=== PATIENT | female | born 1985 | race Caucasian/White ===

== ENCOUNTER 2017-12-22 09:18 | Inpatient (IN) | payer OTHER ==
[~2017-12-22] VITALS: Ht 144.8 cm; Wt 59.9 kg
--- NOTE | ~2017-12-22 | HC ---
[facility] [place] [address] CONSULTATION Name: STEPHANIECARMELO A Room #: 357-P [facility] IN ..#: [id number] Admission: 12/22/17 Attend Phys: Mikhail Vasquez MD Discharge: Date of : 85 Report #: [id number] THIS REPORT FOR: //name// CC: Roman Vasquez DATE OF SERVICE: 12/23/2017 REASON FOR CONSULTATION: Fever in the setting of alcoholic pancreatitis, hepatitis and cirrhosis. HISTORY OF PRESENT ILLNESS: The patient was a 32-year-old brought into the Emergency Room with abdominal pain, nausea and vomiting on 12/22/2017. She has alcohol abuse issues and cirrhosis of the liver. Hospitalized at [facility] last month with similar symptoms. She spent three weeks in the hospital. Following discharge late last week, she started drinking again and then came in with increased abdominal pain, nausea and vomiting. She has had previous pancreatitis with pseudocyst. Also, was found to be hepatitis C positive. Today, had a temperature of 101 degrees. No cough or sputum production. Continues to have abdominal pain. She has been able to keep some liquids down. No diarrhea. No dysuria or frequency. No rash. She remains icteric. Blood pressure dropped down into the 90s systolic. She has been given fluids and albumin. Denies any presyncopal symptoms. She notes good urine output. ALLERGIES: ASPIRIN, CODEINE, FENTANYL, NAPROSYN, PENICILLIN, TRAMADOL, KETOROLAC, PROPOXYPHENE. MEDICATIONS: As noted on her MAR, which were reviewed. PAST MEDICAL HISTORY: Pancreatitis, fatty liver, cirrhosis, alcohol abuse, . FAMILY HISTORY: Colon cancer. SOCIAL HISTORY: She smokes and is a heavy drinker. REVIEW OF SYSTEMS: Ten-point review negative other than what is described above. PHYSICAL EXAMINATION: VITAL SIGNS: Currently afebrile, heart rate 100, respiratory rate 18, blood pressure 93/58. She was up ambulatory. GENERAL: She was alert and pleasant, in no acute distress, although complaining of abdominal pain. HEENT: Sclerae were icterus. Pupils equal, round and reactive to light. [facility] [address] [place] [address] CONSULTATION Name: CARMELO BROWN Room #: 357-P [facility] IN ..#: [id number] Admission: 12/22/17 Attend Phys: Mikhail Vasquez MD Discharge: Date of : 85 Report #: [id number] unremarkable. NECK: Supple. LUNGS: Decreased breath sounds in the bases, mostly on the right. HEART: Regular, without murmur. ABDOMEN: Distended, tender mostly in the right upper quadrant. She had fullness throughout the right upper quadrant. Liver edge was palpable. She had no guarding or rebound. EXTREMITIES: Unremarkable with no edema. NEUROLOGIC: Nonfocal. LABORATORY STUDIES: Creatinine 0.6, bilirubin 6.6, alkaline phosphatase 141, AST 162, ALT 31, albumin 1.7, ammonia 26, lipase 86, lactate 1.4. Alcohol level was 43 on admission, hemoglobin 8.8, white count 12.6, platelet count 442,000. Urinalysis with bilirubin. Blood cultures are pending. Hepatitis C positive. Chest x-ray, increased right hemidiaphragm. CT scan of the abdomen and pelvis shows splenic infarct, mild splenomegaly and fatty liver. No ascites, inflammation of the pancreas tail with a small pseudocyst, portal hypertension. IMPRESSION: Fever in the setting of alcoholic hepatitis and cirrhosis. Continues to have abdominal pain. She has portal hypertension with splenic infarct. Hepatitis C is positive. PLAN: Recommend continuing antibiotic coverage and await blood culture results. Fever, likely related to her hepatitis and mild pancreatitis. We will see how she does over the next 24-48 hours. I agree with psychiatric evaluation to assist with alcohol cessation. <ELECTRONICALLY SIGNED> By: Laith Michel MD 12/24/17 [id number] Laith Michel MD /nt
[~2017-12-22 09:18] MED LIST: ACETAMINOPHEN-1 EAC1 PO; ALPRAZOLAM2 MG PO; AMBIEN 10 MG TA10 MG PO; AMOXICILLI250 MG/51 PO; AMOXICILLI400 MG/5 M PO; AMOXICILLIN875 MG PO; APAP500 PO; AUGMENTIN 875875 M1 PO; AZITHROMYC200 MG/51 PO; BACTRIM DS TAB1 EACH PO; CARISOPRODOL 3350 MG PO; CIPROFLOXACIN500 M1 PO; FLAGYL500 MG PO; FLEXERIL PO; FLONASE 0.05%50 MCG NASAL; FLONASE 0.05%50 MCG NS; HALOPERIDOL 5 MG5 MG PO; HYDROCODON-ACE1 EAC7 PO; HYDROCODONE-AC120 ML PO; IBUPROFEN 400400 M2 PO; LORTAB 5 MG/5001 TA1 PO; LORTAB 5 MG/5001 TAB PO; MACROBID 100 M100 M1 PO; MEDROL DOSPAK21 TA1 PO; MEDROLDOSEPACK PO; NORCO 5-325 TA1 EACH PO; NUCYNTA50 MG PO; OXYCODONE HCL 55 MG PO; PENICILLIN VK500 MG PO; PERCOCET 5-3251 EACH PO; PHENERGAN 25 MG25 M1 PO; PYRIDIUM200 MG PO; RELAFEN500 MG PO; ROXICODONE5 M1 PO; TESSALON PERLE100 MG PO; XANAX XR2 MG PO; ZPAK; ZPAK PO
[2017-12-22 09:19] VITALS: BP 125/86
[2017-12-22] MEDS ORDERED: OXYCODONE HCL 55 MG PO (09:28)
[2017-12-22 10:19] LABS: ABSOLUTE NEUTROPHILS 11.2 thou/uL (1.4-8.2); BASOPHILS 0.6 % (0.0-2.0); EOSINOPHILS 0.6 % (0.0-3.0); HEMATOCRIT 34.8 % (37.0-47.0); HEMOGLOBIN 11.8 gm/dL (12.0-15.0); LYMPHOCYTES 16.3 % (24.0-44.0); MCH 33.7 pg (26.0-34.0); MCV 99.3 fL (80.0-100.0); MONOCYTES 6.1 % (1.0-8.0); PLATELET COUNT 698 thou/uL (150-400); POLYS 76.4 % (36.0-66.0); RDW 18.8 % (10.5-14.5); WBC 14.7 thou/uL (4.0-11.0)
[2017-12-22 10:25] LABS: URINE BILIRUBIN 1+ (Negative); URINE BLOOD NEGATIVE (Negative); URINE CLARITY CLEAR; URINE COLOR YELLOW; URINE GLUCOSE-RANDOM* NEGATIVE (Negative); URINE KETONES NEGATIVE (Negative); URINE LEUKOCYTES-REFLEX NEGATIVE (Negative); URINE NITRITE-REFLEX NEGATIVE (Negative); URINE PROTEIN (DIPSTICK) NEGATIVE (Negative)
[2017-12-22 10:27] LABS: ICTOTEST (BILI CONFIRMATORY) Positive (Negative)
[2017-12-22 10:29] LABS: CALCIUM 9.1 mg/dL (8.5-10.1); CREATININE 0.5 mg/dL (0.6-1.0)
[2017-12-22 10:33] LABS: ALBUMIN 2.1 g/dL (3.4-5.0); TOTAL PROTEIN 7.9 g/dL (6.4-8.2)
[2017-12-22 10:33] LABS: AMP/METHAMP Negative (Negative); BARBITURATES Negative (Negative); BENZODIAZEPINES Negative (Negative); COCAINE Negative (Negative); METHADONE Negative (Negative); OPIATES Negative (Negative); PCP Negative (Negative)
[2017-12-22 10:34] LABS: TOTAL BILIRUBIN 7.5 mg/dL (<0.1-1.0)
[2017-12-22 10:39] LABS: ANISOCYTOSIS 1+; PLATELET ESTIMATE INCREASED
[2017-12-22 11:56] VITALS: BP 124/82
[2017-12-22 12:12] LABS: INR 1.3; PROTIME 13.6 Seconds (9.3-11.4)
[2017-12-22 12:21] VITALS: BP 124/82
[2017-12-22 12:34] VITALS: BP 121/82
[2017-12-22 15:20] VITALS: BP 102/67
[2017-12-22 17:00] LABS: % SATURATION 33 % (20-39); IRON 75 ug/dL (50-170); TIBC 225 ug/dL (250-450)
[2017-12-22 19:05] VITALS: BP 100/71
[2017-12-23] VITALS (9 sets, daily range): BP systolic 87–113; BP diastolic 53–81
[2017-12-23 04:07] LABS: IgG 1410 mg/dL (700-1600)
[2017-12-23 04:44] LABS: ALBUMIN 1.7 g/dL (3.4-5.0); CALCIUM 8.7 mg/dL (8.5-10.1); CREATININE 0.4 mg/dL (0.6-1.0); DIRECT BILIRUBIN 5.2 mg/dL (<0.1-0.3); TOTAL BILIRUBIN 6.6 mg/dL (<0.1-1.0)
[2017-12-23 04:45] LABS: MCH 33.8 pg (26.0-34.0); MCHC 33.7 g/dL (28.0-37.0); MCV 100.3 fL (80.0-100.0); RBC 2.79 mil/uL (4.20-5.00); RDW 19.5 % (10.5-14.5); WBC 9.4 thou/uL (4.0-11.0)
[2017-12-23 04:47] LABS: POTASSIUM 4.1 mmol/L (3.5-5.1)
[2017-12-23 04:50] LABS: HEMOGLOBIN 9.4 gm/dL (12.0-15.0)
[2017-12-23 04:54] LABS: CHOLESTEROL 175 mg/dL (<200); HDL CHOLESTEROL 9 mg/dL (>40); LDL CHOLESTEROL 97 mg/dL (<100); TC:HDL 19.4 Ratio (Not establshd); TRIGLYCERIDE 347 mg/dL (<150); VLDL 69 mg/dL (<40)
[2017-12-23 04:56] LABS: SERUM ASSESSMENT Clear
[2017-12-23 05:03] LABS: TOTAL PROTEIN 6.5 g/dL (6.4-8.2)
[2017-12-23 10:09] LABS: HAV IgM AB (ANTI-HAV IgM) Negative (Negative); HEPATITIS B SURFACE AG Negative (Negative); HEPATITIS C VIRUS AB 7.8 (0.0-0.9)
[2017-12-23 14:10] LABS: CERULOPLASMIN 32.9 mg/dL (19.0-39.0)
[2017-12-23 17:30] LABS: URINE BILIRUBIN NEGATIVE (Negative); URINE BLOOD NEGATIVE (Negative); URINE CLARITY CLEAR; URINE COLOR YELLOW; URINE GLUCOSE-RANDOM* NEGATIVE (Negative); URINE KETONES NEGATIVE (Negative); URINE LEUKOCYTES-REFLEX NEGATIVE (Negative); URINE NITRITE-REFLEX NEGATIVE (Negative); URINE PROTEIN (DIPSTICK) NEGATIVE (Negative); URINE SPECIFIC GRAVITY <= 1.005 (1.005-1.035); URINE UROBILINOGEN 0.2 E.U./dl (0.2-1.0)
[2017-12-23 19:14] LABS: HEMATOCRIT 25.8 % (37.0-47.0); HEMOGLOBIN 8.8 gm/dL (12.0-15.0); MCH 34.1 pg (26.0-34.0); MCHC 34.1 g/dL (28.0-37.0); RBC 2.58 mil/uL (4.20-5.00); RDW 18.9 % (10.5-14.5); WBC 12.6 thou/uL (4.0-11.0)
[2017-12-23 19:26] LABS: CALCIUM 8.5 mg/dL (8.5-10.1); CREATININE 0.6 mg/dL (0.6-1.0); POTASSIUM 4.2 mmol/L (3.5-5.1)
[2017-12-23 23:32] LABS: HEMATOCRIT 26.1 % (37.0-47.0); HEMOGLOBIN 8.7 gm/dL (12.0-15.0)
[2017-12-24 03:16] VITALS: BP 103/69
[2017-12-24 05:46] LABS: ABSOLUTE NEUTROPHILS 5.4 thou/uL (1.4-8.2); BASOPHILS 0.6 % (0.0-2.0); EOSINOPHILS 3.5 % (0.0-3.0); HEMATOCRIT 23.8 % (37.0-47.0); HEMOGLOBIN 8.1 gm/dL (12.0-15.0); LYMPHOCYTES 22.4 % (24.0-44.0); MCH 34.1 pg (26.0-34.0); MCHC 33.9 g/dL (28.0-37.0); MCV 100.6 fL (80.0-100.0); MONOCYTES 7.9 % (1.0-8.0); PLATELET COUNT 399 thou/uL (150-400); POLYS 65.6 % (36.0-66.0); RBC 2.37 mil/uL (4.20-5.00); RDW 18.7 % (10.5-14.5); WBC 8.2 thou/uL (4.0-11.0)
[2017-12-24 05:56] LABS: INR 1.3; PROTIME 12.9 Seconds (9.3-11.4)
[2017-12-24 06:08] LABS: ALBUMIN 1.8 g/dL (3.4-5.0); CALCIUM 8.2 mg/dL (8.5-10.1); CREATININE 0.5 mg/dL (0.6-1.0); PHOSPHORUS 3.6 mg/dL (2.5-4.9); POTASSIUM 3.9 mmol/L (3.5-5.1); TOTAL BILIRUBIN 4.7 mg/dL (<0.1-1.0)
[2017-12-24 09:29] VITALS: BP 107/71
[2017-12-24 11:41] VITALS: BP 116/77
[2017-12-24 16:06] VITALS: BP 126/88
[2017-12-24 20:04] VITALS: BP 118/68
[2017-12-24 23:10] LABS: HEMATOCRIT 24.9 % (37.0-47.0); HEMOGLOBIN 8.4 gm/dL (12.0-15.0)
[2017-12-25 03:52] VITALS: BP 107/72
[2017-12-25 05:37] LABS: ABSOLUTE NEUTROPHILS 6.3 thou/uL (1.4-8.2); BASOPHILS 0.6 % (0.0-2.0); EOSINOPHILS 3.1 % (0.0-3.0); HEMATOCRIT 24.6 % (37.0-47.0); HEMOGLOBIN 8.3 gm/dL (12.0-15.0); LYMPHOCYTES 21.2 % (24.0-44.0); MCH 34.2 pg (26.0-34.0); MCHC 33.9 g/dL (28.0-37.0); MCV 100.9 fL (80.0-100.0); MONOCYTES 9.5 % (1.0-8.0); PLATELET COUNT 403 thou/uL (150-400); POLYS 65.6 % (36.0-66.0); RBC 2.44 mil/uL (4.20-5.00); RDW 19.4 % (10.5-14.5); WBC 9.6 thou/uL (4.0-11.0)
[2017-12-25 05:49] LABS: ALBUMIN 1.9 g/dL (3.4-5.0); CALCIUM 8.3 mg/dL (8.5-10.1); CREATININE 0.5 mg/dL (0.6-1.0); DIRECT BILIRUBIN 3.9 mg/dL (<0.1-0.3); POTASSIUM 4.1 mmol/L (3.5-5.1); TOTAL BILIRUBIN 4.7 mg/dL (<0.1-1.0); TOTAL PROTEIN 5.9 g/dL (6.4-8.2)
[2017-12-25 06:17] LABS: ANISOCYTOSIS 2+; POLYCHROMASIA 1+
[2017-12-25 08:00] VITALS: BP 94/61
[2017-12-25 10:10] LABS: ANA INTERPRETATION Negative (Negative)
[2017-12-25 15:47] VITALS: BP 113/75
[2017-12-25 19:16] VITALS: BP 111/71
[2017-12-25 23:27] LABS: HEMATOCRIT 26.3 % (37.0-47.0); HEMOGLOBIN 8.9 gm/dL (12.0-15.0)
[2017-12-26 04:33] VITALS: BP 120/88
[2017-12-26 07:05] VITALS: BP 120/77
[2017-12-26 07:30] LABS: HEMATOCRIT 25.9 % (37.0-47.0); HEMOGLOBIN 8.7 gm/dL (12.0-15.0); MCH 33.8 pg (26.0-34.0); MCHC 33.4 g/dL (28.0-37.0); RBC 2.56 mil/uL (4.20-5.00); RDW 19.9 % (10.5-14.5); WBC 9.4 thou/uL (4.0-11.0)
[2017-12-26 07:44] LABS: ALBUMIN 1.8 g/dL (3.4-5.0); CALCIUM 8.4 mg/dL (8.5-10.1); CREATININE 0.5 mg/dL (0.6-1.0); POTASSIUM 3.9 mmol/L (3.5-5.1); TOTAL BILIRUBIN 3.9 mg/dL (<0.1-1.0)
[2017-12-26 08:00] LABS: TOTAL PROTEIN 6.1 g/dL (6.4-8.2)
[2017-12-26 08:05] LABS: INR 1.3; PROTIME 12.9 Seconds (9.3-11.4)
[2017-12-26 15:00] VITALS: BP 133/80
[2017-12-26 19:04] VITALS: BP 108/85
[2017-12-26 23:10] LABS: HEMATOCRIT 29.3 % (37.0-47.0); HEMOGLOBIN 9.7 gm/dL (12.0-15.0)
[2017-12-27 03:32] VITALS: BP 97/68
[2017-12-27 06:11] LABS: ABSOLUTE NEUTROPHILS 7.1 thou/uL (1.4-8.2); BASOPHILS 0.3 % (0.0-2.0); EOSINOPHILS 3.3 % (0.0-3.0); HEMATOCRIT 27.2 % (37.0-47.0); HEMOGLOBIN 9.4 gm/dL (12.0-15.0); LYMPHOCYTES 16.3 % (24.0-44.0); MCH 34.6 pg (26.0-34.0); MCHC 34.4 g/dL (28.0-37.0); MCV 100.5 fL (80.0-100.0); MONOCYTES 6.8 % (1.0-8.0); PLATELET COUNT 400 thou/uL (150-400); POLYS 73.3 % (36.0-66.0); RBC 2.71 mil/uL (4.20-5.00); RDW 19.9 % (10.5-14.5); WBC 9.7 thou/uL (4.0-11.0)
[2017-12-27 06:22] LABS: CALCIUM 8.7 mg/dL (8.5-10.1); CREATININE 0.5 mg/dL (0.6-1.0); TOTAL BILIRUBIN 4.2 mg/dL (<0.1-1.0); TOTAL PROTEIN 6.4 g/dL (6.4-8.2)
[2017-12-27 07:42] VITALS: BP 96/66
[2017-12-27 11:21] VITALS: BP 107/84
[2017-12-27 19:11] VITALS: BP 116/74
[2017-12-27 23:25] LABS: HEMATOCRIT 32.3 % (37.0-47.0); HEMOGLOBIN 10.7 gm/dL (12.0-15.0)
[2017-12-28 04:52] VITALS: BP 125/89
[2017-12-28 06:59] LABS: ABSOLUTE NEUTROPHILS 9.3 thou/uL (1.4-8.2); BASOPHILS 0.5 % (0.0-2.0); EOSINOPHILS 1.3 % (0.0-3.0); HEMATOCRIT 30.7 % (37.0-47.0); HEMOGLOBIN 10.3 gm/dL (12.0-15.0); LYMPHOCYTES 12.5 % (24.0-44.0); MCH 33.2 pg (26.0-34.0); MCHC 33.5 g/dL (28.0-37.0); MCV 99.2 fL (80.0-100.0); MONOCYTES 7.4 % (1.0-8.0); PLATELET COUNT 461 thou/uL (150-400); POLYS 78.3 % (36.0-66.0); RDW 20.1 % (10.5-14.5); WBC 11.9 thou/uL (4.0-11.0)
[2017-12-28 07:04] LABS: CALCIUM 8.9 mg/dL (8.5-10.1); CREATININE 0.5 mg/dL (0.6-1.0); POTASSIUM 3.8 mmol/L (3.5-5.1)
[2017-12-28 07:24] VITALS: BP 117/80
[2017-12-28 08:46] LABS: ANISOCYTOSIS 2+; HYPOCHROMASIA 1+; SCHISTOCYTES OCCASIONAL
[2017-12-28 12:14] VITALS: BP 135/94
[2017-12-28 16:02] VITALS: BP 107/80
[2017-12-28 18:58] VITALS: BP 103/72
[2017-12-29 03:31] VITALS: BP 96/65
[2017-12-29 05:19] LABS: ABSOLUTE NEUTROPHILS 7.8 thou/uL (1.4-8.2); BASOPHILS 0.9 % (0.0-2.0); EOSINOPHILS 2.5 % (0.0-3.0); HEMATOCRIT 30.2 % (37.0-47.0); LYMPHOCYTES 14.6 % (24.0-44.0); MCHC 33.1 g/dL (28.0-37.0); MCV 99.8 fL (80.0-100.0); MONOCYTES 8.9 % (1.0-8.0); PLATELET COUNT 454 thou/uL (150-400); POLYS 73.1 % (36.0-66.0); RBC 3.02 mil/uL (4.20-5.00); RDW 19.9 % (10.5-14.5); WBC 10.6 thou/uL (4.0-11.0)
[2017-12-29 05:34] LABS: ALBUMIN 2.1 g/dL (3.4-5.0); CALCIUM 8.7 mg/dL (8.5-10.1); CREATININE 0.5 mg/dL (0.6-1.0); POTASSIUM 3.4 mmol/L (3.5-5.1); TOTAL BILIRUBIN 3.7 mg/dL (<0.1-1.0); TOTAL PROTEIN 6.7 g/dL (6.4-8.2)
[2017-12-29 07:13] VITALS: BP 96/71
[2017-12-29 11:24] VITALS: BP 110/83
[2017-12-29] MEDS ORDERED: VISTARIL 25 MG25 M1 PO (13:24)
[2017-12-29] MEDS ORDERED: FLAGYL500 MG PO (13:24)
[2017-12-29] MEDS ORDERED: PANTOPRAZOLE SO40 M1 PO (13:24)
[2017-12-29] MEDS ORDERED: PANCREAZE DR 11 EAC2 PO (13:24)
[2017-12-29] MEDS ORDERED: PROCHLORPERAZINE5 M2 PO (13:24)
[2017-12-29] MEDS ORDERED: VITAMIN B-1100 M2 PO (13:24)
[2017-12-29] MEDS ORDERED: CIPRO500 MG PO (13:24)
[2017-12-29] MEDS ORDERED: PRENATAL COMPL1 EACH PO (13:24)
[2017-12-29 17:49] VITALS: BP 110/83
== END 2017-12-29 18:25 | disposition home or self-care (01) | DRG 871 ==
LOC: ER 09:18 → 3W 11:36 → EROBS 11:36 → 3W 12:17
PROVIDERS: Emergency Medicine; Hospitalist; Nurse Practitioner; Nurse Practitioner Family; Specialist
DX: A41.9 Sepsis, unspecified organism (principal); K85.90 Acute pancreatitis without necrosis or infection, unspecified; K76.6 Portal hypertension; E46 Unspecified protein-calorie malnutrition; K86.3 Pseudocyst of pancreas; K86.1 Other chronic pancreatitis; I86.4 Gastric varices; E86.0 Dehydration; K72.90 Hepatic failure, unspecified without coma; K59.00 Constipation, unspecified; I86.8 Varicose veins of other specified sites; K70.31 Alcoholic cirrhosis of liver with ascites; D64.9 Anemia, unspecified; K75.81 Nonalcoholic steatohepatitis (NASH); G47.00 Insomnia, unspecified; R65.20 Severe sepsis without septic shock; K70.10 Alcoholic hepatitis without ascites; D73.5 Infarction of spleen; E80.6 Other disorders of bilirubin metabolism; E87.6 Hypokalemia; D47.3 Essential (hemorrhagic) thrombocythemia; Z79.899 Other long term (current) drug therapy; Z80.0 Family history of malignant neoplasm of digestive organs; Z88.0 Allergy status to penicillin; Z98.891 History of uterine scar from previous surgery; Z88.5 Allergy status to narcotic agent; Z88.8 Allergy status to other drugs, medicaments and biological substances; Z88.6 Allergy status to analgesic agent; Z87.891 Personal history of nicotine dependence; Z76.5 Malingerer [conscious simulation]; Z68.28 Body mass index [BMI] 28.0-28.9, adult
CPT/HCPCS: 10879

== ENCOUNTER 2018-03-26 10:18 | Inpatient (IN) | payer OTHER ==
[~2018-03-26] VITALS: Ht 144.8 cm; Wt 59.0 kg
[2018-03-26 10:18] VITALS: BP 127/80
[~2018-03-26 10:18] MED LIST changes: +CIPRO500 MG PO; +PANCREAZE DR 11 EAC2 PO; +PANTOPRAZOLE SO40 M1 PO; +PRENATAL COMPL1 EACH PO; +PROCHLORPERAZINE5 M2 PO; +VISTARIL 25 MG25 M1 PO; +VITAMIN B-1100 M2 PO
[2018-03-26 10:42] LABS: HEMATOCRIT 31.7 % (37.0-47.0); HEMOGLOBIN 11.1 gm/dL (12.0-15.0); MCV 91.4 fL (80.0-100.0); PLATELET COUNT 325 thou/uL (150-400); RBC 3.46 mil/uL (4.20-5.00); RDW 19.6 % (10.5-14.5); WBC 6.2 thou/uL (4.0-11.0)
[2018-03-26 10:48] LABS: CALCIUM 8.3 mg/dL (8.5-10.1); CREATININE 0.4 mg/dL (0.6-1.0)
[2018-03-26 10:54] LABS: ALBUMIN 2.9 g/dL (3.4-5.0); TOTAL BILIRUBIN 1.6 mg/dL (<0.1-1.0); TOTAL PROTEIN 7.2 g/dL (6.4-8.2)
[2018-03-26 11:17] LABS: ABSOLUTE NEUTROPHILS 4.3 thou/uL (1.4-8.2); ANISOCYTOSIS 2+; ATYPICAL LYMPHS 2 %
[2018-03-26 12:00] LABS: URINE BILIRUBIN 1+ (Negative); URINE CLARITY CLOUDY; URINE COLOR YELLOW; URINE GLUCOSE-RANDOM* NEGATIVE (Negative); URINE KETONES TRACE (Negative); URINE PROTEIN (DIPSTICK) NEGATIVE (Negative); URINE SPECIFIC GRAVITY >= 1.030 (1.005-1.035)
[2018-03-26 12:01] LABS: ICTOTEST (BILI CONFIRMATORY) Positive (Negative); URINE BLOOD NEGATIVE (Negative); URINE LEUKOCYTES-REFLEX NEGATIVE (Negative); URINE NITRITE-REFLEX NEGATIVE (Negative)
[2018-03-26 12:03] LABS: AMP/METHAMP Negative (Negative); BARBITURATES Negative (Negative); BENZODIAZEPINES Negative (Negative); COCAINE Negative (Negative); METHADONE Negative (Negative); OPIATES Negative (Negative); PCP Negative (Negative)
[2018-03-26 16:30] LABS: FOLIC ACID 6.9 ng/mL (8.6-58.9)
[2018-03-26 16:41] VITALS: BP 111/64
[2018-03-26 17:14] VITALS: BP 105/63
--- NOTE | 2018-03-26 17:23 | NUR ---
CALLED FLOOR TO GIVE UPDATE ABOUT PT'S IV STATUS.
[2018-03-26 17:41] VITALS: BP 112/73
[2018-03-26 19:06] VITALS: BP 105/69
[2018-03-27] VITALS: BP 94/64
--- NOTE | 2018-03-27 03:13 | NUR ---
patient is alert and oriented. patient is anxious at times. patient is sba. patients pain is treated with pain medication. patient is on room air. patients ciwa was 6 and 3. patients potassium and mag were replace. patients lbm was the 3rd. patient is on the electrolyte proticol. patient is resting comfortabley in bed. wcm. patient is progressing to goals.
[2018-03-27 03:50] VITALS: BP 103/69
[2018-03-27 05:50] LABS: ALBUMIN 2.2 g/dL (3.4-5.0); CALCIUM 7.6 mg/dL (8.5-10.1); CREATININE 0.5 mg/dL (0.6-1.0); MAGNESIUM 1.3 mg/dL (1.8-2.4); TOTAL PROTEIN 5.3 g/dL (6.4-8.2)
[2018-03-27 07:48] VITALS: BP 93/61
[2018-03-27] MEDS ORDERED: HYDROCODON-ACE1 EAC7 PO (10:00)
[2018-03-27] MEDS ORDERED: VITAMIN B-1100 M2 PO (10:00)
[2018-03-27] MEDS ORDERED: CHLORDIAZEPOXID10 MG PO (10:01)
[2018-03-27 10:15] VITALS: BP 93/61
== END 2018-03-27 13:00 | disposition home or self-care (01) | DRG 433 ==
LOC: ER 10:18 → EROBS 14:32 → 3W 17:16 → ENTRNSPT 03-27 12:51 → EDTRNSPTSTS 03-27 12:58 → 3W 03-27 13:00
PROVIDERS: Emergency Medicine; ADMIT Hospitalist
DX: K70.30 Alcoholic cirrhosis of liver without ascites (principal); F10.239 Alcohol dependence with withdrawal, unspecified; E46 Unspecified protein-calorie malnutrition; K70.10 Alcoholic hepatitis without ascites; E87.6 Hypokalemia; E83.42 Hypomagnesemia; K76.0 Fatty (change of) liver, not elsewhere classified; Z79.899 Other long term (current) drug therapy; Z88.6 Allergy status to analgesic agent; Z88.0 Allergy status to penicillin; Z88.8 Allergy status to other drugs, medicaments and biological substances; Z87.891 Personal history of nicotine dependence; Z80.0 Family history of malignant neoplasm of digestive organs; Z68.28 Body mass index [BMI] 28.0-28.9, adult
CPT/HCPCS: 10879

== ENCOUNTER 2018-06-02 01:46 | Inpatient (IN) | payer OTHER ==
[2018-06-02] VITALS (8 sets, daily range): BP systolic 98–151; BP diastolic 71–95
[~2018-06-02] VITALS: Ht 144.8 cm; Wt 54.0 kg
[~2018-06-02 01:46] MED LIST changes: +CHLORDIAZEPOXID10 MG PO
[2018-06-02] MEDS ORDERED: ONDANSETRON HCL4 M2 PO (01:54)
[2018-06-02 02:23] LABS: ABSOLUTE NEUTROPHILS 8.3 thou/uL (1.4-8.2); BASOPHILS 0.9 % (0.0-2.0); EOSINOPHILS 0.7 % (0.0-3.0); HEMATOCRIT 29.7 % (37.0-47.0); HEMOGLOBIN 9.8 gm/dL (12.0-15.0); LYMPHOCYTES 12.9 % (24.0-44.0); MCH 29.2 pg (26.0-34.0); MCHC 33.2 g/dL (28.0-37.0); MCV 88.1 fL (80.0-100.0); PLATELET COUNT 423 thou/uL (150-400); POLYS 75.5 % (36.0-66.0); RBC 3.37 mil/uL (4.20-5.00); RDW 17.2 % (10.5-14.5)
[2018-06-02 02:38] LABS: ALBUMIN 4.9 g/dL (3.4-5.0); CALCIUM 9.1 mg/dL (8.5-10.1); CREATININE 0.7 mg/dL (0.6-1.0); TOTAL BILIRUBIN 1.1 mg/dL (<0.1-1.0)
[2018-06-02 02:47] LABS: POTASSIUM 2.8 mmol/L (3.5-5.1)
[2018-06-02 03:13] LABS: URINE BILIRUBIN NEGATIVE (Negative); URINE BLOOD NEGATIVE (Negative); URINE CLARITY CLEAR; URINE COLOR YELLOW; URINE GLUCOSE-RANDOM* NEGATIVE (Negative); URINE KETONES NEGATIVE (Negative); URINE LEUKOCYTES-REFLEX NEGATIVE (Negative); URINE NITRITE-REFLEX NEGATIVE (Negative); URINE PROTEIN (DIPSTICK) 1+ (Negative); URINE SPECIFIC GRAVITY >= 1.030 (1.005-1.035); URINE UROBILINOGEN 0.2 E.U./dl (0.2-1.0)
[2018-06-02 03:57] LABS: BACTERIA-REFLEX None Seen /HPF (None Seen); CASTS None Seen /LPF (None Seen); CRYSTALS None Seen /LPF (None Seen); MUCUS None Seen strn/LPF (None Seen); SQUAMOUS 0-3 Few /LPF (0-3); URINE RBC None Seen /HPF (0-2); URINE WBC-REFLEX None Seen /HPF (0-5)
--- NOTE | 2018-06-02 04:26 | NUR ---
[facility]
--- NOTE | 2018-06-02 06:37 | NUR ---
ADMIITED FROM ER UNDER 'S CARE. ARIANA WALKER INTERNET MARKETING MANAGER. ADMITTED WITH SERUM ALCOHOL LVL, AB PAIN, PANCREATITIS. AXOX4. PERSISTENT PAIN AND NAUSEA. NO VOMITING NOTED. ON ISOLATION FOR C.DIFF PER PT. HOWEVER, PT IS UNABLE TO DESIGNATE TIME BEING DIGNOSED OR ON ANY MEDICATION FOR IT. WILL COLLECT STOOL TO CONFIRM. PT IS JAUNDICED AND ABD IS LARGELY DISTENDED AND FIRM. ACTIVE BOWEL SOUNDS. PT ON NPO FOR NOW AND WILL GO TO CT SCAN IN AM. POTASSIUM REPLAACED. CIWA INITIATED. ATIVAN GIVEN PER PROTOCOL. PT DOES REPORT RELIEF FROM MORPHINE AND ATIVAN. RESTING COMFORTABLE IN BED. NO S/S ACUTE DISTRESS NOTED OR REPORTED AT THIS TIME. WILL CONT TO MONITOR FOR ANY CHANGES IN CONDTIION. FYI, PT HAS EXTENSIVE HX OF ALCOHOL ABUSE AND DRUG ABUSE. PT WAS EVALUATED BY ARIANA GARCIA AT BEDSIDE. ALL QUESTIONS AND CONCERNED ASWERED BY DOOR GLASS INSTALLER.
--- NOTE | 2018-06-02 08:20 | NUR ---
chart review. consulted for alcohol withdrawl plan. cm visited with pt at bedside. intro to cm, dcp, safe net packet. pt is a & o x 3 and able to make her needs know. she reported " live with and mother in-law. to stairs, independent. no medical equip, been to alcohol rehab in past, do not know where i was, the court sent it all up"/kingsley. will cont following as needed for dc need " resources later is ok"/kingsley.
--- NOTE | 2018-06-02 08:23 | NUR ---
ASSESMENT COMPLETED. VSS. A/O. C/O PAIN PARTIALLY RELIEVED BY MEDS ORDERED. NO NOTED SOA. NO NV. TACHYCARDIC OTHERWISE ASYMPTOMATIC. RESTING IN BED AT THIS TIME. K+ INFUSING. WILL CONT. TO MONITOR.
--- NOTE | 2018-06-03 04:14 | NUR ---
SLEPT PART OF SHIFT. UP TO BATHROOM WITH STANDBY ASSIST WITH STEADY BUT WEAK GAIT. CONTINUES TO COMPLAIN ABOUT ABDOMANAL PAIN DUE TO ASCITES WITH MOROPHINE GIVEN WITH RELIEF. PLAN FOR PARACENTESIS TODAY SO NPO PAST MIDNIGHT. WORKING ON GOALS AND PLAN OF CARE FOR NOC. CIWA 2-3 THIS SHIFT WITH PRN ATIVAN GIVEN. NOT PROGRESSING TOWARDS DISCHARGE GOALS AT THIS TIME. CONTINUE TO ASSES. INTERMITNET NAUSEA THIS SHIFT.
[2018-06-03 04:32] VITALS: BP 104/76
[2018-06-03 05:57] LABS: HEMATOCRIT 24.6 % (37.0-47.0); HEMOGLOBIN 8.3 gm/dL (12.0-15.0); MCH 29.4 pg (26.0-34.0); MCHC 33.5 g/dL (28.0-37.0); MCV 87.8 fL (80.0-100.0); RBC 2.81 mil/uL (4.20-5.00); RDW 16.8 % (10.5-14.5); WBC 7.5 thou/uL (4.0-11.0)
[2018-06-03 06:09] LABS: INR 1.5; PROTIME 15.5 Seconds (9.3-11.4)
[2018-06-03 06:16] LABS: ALBUMIN 3.7 g/dL (3.4-5.0); CALCIUM 8.1 mg/dL (8.5-10.1); CREATININE 0.7 mg/dL (0.6-1.0); TOTAL BILIRUBIN 1.3 mg/dL (<0.1-1.0); TOTAL PROTEIN 6.8 g/dL (6.4-8.2)
[2018-06-03 08:15] VITALS: BP 111/72
--- NOTE | 2018-06-03 11:40 | NUR ---
Nutrition: assess d/t consult. Pt admitted for N/V and abdominal pain. Hx of Hep C, ETOH cirrhosis, and pancreatitis. Paracentesis done today. Pt is unsure of recent weight loss; was not feeling well during visit. She is trying to drink fluids, but her appetite has been poor recently. Will need to follow for diet advancement/tolerance. Consider low risk at this time.
[2018-06-03 12:40] LABS: CLARITY SLIGHTLY CLOUDY; COLOR YELLOW; SOURCE ABDOMINAL; TOTAL VOLUME 60 mL
[2018-06-03 12:46] LABS: SOURCE ABDOMINAL
[2018-06-03 13:07] LABS: BF NUCLEATED CELLS 416; BF RBC 897
[2018-06-03 13:52] LABS: BF NEUTROPHILS 1
[2018-06-03 13:53] LABS: BF MACROPHAGE 10
[2018-06-03 14:24] VITALS: BP 146/98
--- NOTE | 2018-06-03 16:40 | NUR ---
PT HAD PARACENTESIS THIS DAY. CM TO FOLLOW INDICATED WITH ANY DISHARGE NEEDS.
[2018-06-03 19:38] VITALS: BP 123/86
--- NOTE | 2018-06-03 19:40 | NUR ---
Assumed pt care this am was on NPO, paracenthesis completed by late morning. Pt constantly wants pain medication on the dot and would mention her pain being at 10/10. Pain medication given, pt wanted it to be increased by 2ml (8mg morphine), informed Dr. Sanchez request was not granted. Pt also verbalized that she was nauseated no vomitus was noted, medication given. CIWA protocol followed Q2, lorazepam was givin due to aggitation. Diet has been changed to regular but will advance as tolerated. Endorsed to the night nurse.
[2018-06-03 19:43] VITALS: BP 120/72
[2018-06-04 03:35] VITALS: BP 134/88
--- NOTE | 2018-06-04 03:58 | NUR ---
SLEPT AT TIMES BETWEEN PAIN MEDICATION. PATIENT HAS BEEN CALM THIS SHIFT. ASSISTED UP TO BATHROOM WITH STANDBY ASSIST. MAINTAIN SAFE ENVIRONEMENT. WORKING ON GOALS AND PLAN OF CARE FOR NOC. PROGRESSING SLOWLY TOWARDS DISCHARG GOALS. COMPLAINTS OF PAIN IN ABDOMAN FREQUENTLY. CONTINUE TO ASSES CLOESLY.
[2018-06-04 05:52] LABS: HEMATOCRIT 27.7 % (37.0-47.0); HEMOGLOBIN 9.6 gm/dL (12.0-15.0); MCH 30.3 pg (26.0-34.0); MCHC 34.6 g/dL (28.0-37.0); MCV 87.4 fL (80.0-100.0); RBC 3.16 mil/uL (4.20-5.00); RDW 16.8 % (10.5-14.5); WBC 10.7 thou/uL (4.0-11.0)
[2018-06-04 06:11] LABS: CALCIUM 8.4 mg/dL (8.5-10.1); CREATININE 0.7 mg/dL (0.6-1.0); POTASSIUM 4.3 mmol/L (3.5-5.1)
[2018-06-04 06:24] LABS: ALBUMIN 3.7 g/dL (3.4-5.0); DIRECT BILIRUBIN 0.5 mg/dL (<0.1-0.3); TOTAL BILIRUBIN 1.2 mg/dL (<0.1-1.0)
[2018-06-04 08:21] VITALS: BP 135/85
[2018-06-04 11:11] LABS: BODY FLUID ALBUMIN 2.9 g/dL (()); BODY FLUID AMYLASE 70 U/L (()); BODY FLUID GLUCOSE 89 mg/dL (()); BODY FLUID LDH 76 IU/L (()); BODY FLUID PROTEIN 4.7 g/dL (())
[2018-06-04 14:25] VITALS: BP 113/77
--- NOTE | 2018-06-04 16:51 | NUR ---
PT ASSESSED AT START OF SHIFT. STILL HAVING ABD PAIN AND INTERMITTENT NASEA W/ SOME EMESIS. RECOMMENDED TO STAY ON LIQUIDS WHILE HAVING NAUSEA. LIPASE BETTER. REQUESTED ATIVAN ONCE THIS AM AND SHE SLEPT FOR A COUPLE OF HOURS. DR. ÁSNCHEZ HERE AT PRESENT SEEING PT.
[2018-06-04 19:23] VITALS: BP 131/93
[2018-06-05 04:36] VITALS: BP 95/66
[2018-06-05 05:43] LABS: ABSOLUTE NEUTROPHILS 5.4 thou/uL (1.4-8.2); BASOPHILS 0.8 % (0.0-2.0); EOSINOPHILS 2.3 % (0.0-3.0); HEMATOCRIT 25.7 % (37.0-47.0); HEMOGLOBIN 8.4 gm/dL (12.0-15.0); LYMPHOCYTES 19.2 % (24.0-44.0); MCH 28.6 pg (26.0-34.0); MCHC 32.7 g/dL (28.0-37.0); MCV 87.3 fL (80.0-100.0); MONOCYTES 8.6 % (1.0-8.0); PLATELET COUNT 286 thou/uL (150-400); POLYS 69.1 % (36.0-66.0); RBC 2.95 mil/uL (4.20-5.00); RDW 16.8 % (10.5-14.5); WBC 7.8 thou/uL (4.0-11.0)
--- NOTE | 2018-06-05 06:33 | NUR ---
SLEPT PART OF SHIFT. COMPLAINTS OF SEVERE ABDOMANAL PAIN. TRIED HYDROCODONE BUT HAD TO FOLLOW WITH MOROPHINE PAST EACH DOSE. THIS AM GAVE MOROPHINE FOR COMPLAINTS. NOT PROGRESSING TOWARDS DISCHARGE GOALS THIS SHIFT. WORKING ON GOALS AND PLAN OF CARE FOR NOC. GAIT MORE STEADY THIS SHIFT. ZOFRAN GIVEN PRN FOR NAUSEA AND ATIVAN FOR ANXIETY. WILL CONTINUE TO ASSES CLOESLY AND ENCOURAGE PO PAIN MEDICATION.
[2018-06-05 08:00] VITALS: BP 110/69
--- NOTE | 2018-06-05 11:08 | PATH ---
[facility] [address] [place] [address] PATHOLOGY RPT PROCEDURE Name: CARMELO BROWN Room #: 454-P [facility] IN ..#: [id number] ������������������ Admission: 06/02/18 ������������������ Date of : 85 Discharge: Report #: [id number] Path Case #: [id number] Note [facility] Accession Number: [id number] TESTS RESULT FLAG UNITS REF RANGE LAB Clinician Provided Cytology Information No. of containers..01 Other (Miscellaneous) Source: ABDOMINAL FLUID DIAGNOSIS: 02 ABDOMINAL FLUID NEGATIVE FOR MALIGNANT CELLS. MESOTHELIAL CELLS ARE PRESENT. THIS INTERPRETATION INCLUDES EVALUATION OF A CELL BLOCK. Pathologist ICD10: 02 K85.90 Signed out by: Kourtney Lopez MD, Pathologist NPI- [id number] Performed by: Jaspreet Garland, [employer] ([facility]) Gross description: 01 23ML, YELLOW, CLOUDY /LCS FLAG LEGEND: L-Low Normal,H-High Normal,LL-Alert Low,HH-Alert High <-Panic Low,>-Panic High,A-Abnormal,AA-Critical Abnormal Performed at: [address] [place] [address] Gavino Alas MD, [address] [address] Kourtney Lopez MD, Specimen Comment: A courtesy copy of this report has been sent to Specimen Comment: [phone], . Specimen Comment: Report sent to / DR WAY Specimen Comment: A duplicate report has been generated due to demographic updates. Performed at: [address], [place], [place] [id number] MD Gavino Alas MD Phone: [phone]
[2018-06-05 15:00] VITALS: BP 107/69
--- NOTE | 2018-06-05 17:05 | NUR ---
IT IS ANTICIPATED THAT PT WILL DISCHARGE HOME OCNE MEDICALLY STABLE WITH NO NEEDS. PT HAD BEEN GIVEN RESOURCES FOR SUBSTANCE ABUSE PROGRAMING EARLIER IN STAY.
[2018-06-05 20:03] VITALS: BP 92/62
[2018-06-05 23:58] VITALS: BP 88/55
--- NOTE | 2018-06-06 01:17 | NUR ---
patient aox4 makes needs known. patient is up at alessandro.pain controlled this shift. patient has asciates, no shortness of air or distress noted this shift. abd soft and round. patient has jaudice. patient asleep and not scoring on ciwa. patient in bed asleep at this time breating regular and unlaboured.
[2018-06-06 04:18] VITALS: BP 109/68
[2018-06-06 05:43] LABS: HEMATOCRIT 26.9 % (37.0-47.0); HEMOGLOBIN 8.9 gm/dL (12.0-15.0); MCH 29.2 pg (26.0-34.0); MCHC 33.2 g/dL (28.0-37.0); MCV 87.9 fL (80.0-100.0); RBC 3.06 mil/uL (4.20-5.00); RDW 17.3 % (10.5-14.5); WBC 7.6 thou/uL (4.0-11.0)
[2018-06-06 05:52] LABS: CALCIUM 8.7 mg/dL (8.5-10.1); CREATININE 0.9 mg/dL (0.6-1.0)
[2018-06-06 07:14] VITALS: BP 109/70
[2018-06-06 14:30] VITALS: BP 108/74
[2018-06-06] MEDS ORDERED: ALDACTONE50 MG PO (16:02)
[2018-06-06] MEDS ORDERED: HYDROCODONE-AP1 EAC6 PO (16:03)
[2018-06-06] MEDS ORDERED: LASIX 40 MG TAB40 M1 PO (16:05)
[2018-06-06] MEDS ORDERED: ATIVAN1 MG PO (16:05)
[2018-06-06 16:15] VITALS: BP 108/74
--- NOTE | 2018-06-06 17:58 | NUR ---
AAOX4. CWA SCORE 0-1. MEDICATED FOR PAIN ORDERED/PRN. DR. MOORE HERE, WRITING FOR DISCHARGE. DISCHARGE INSTRUCTIONS, SCRIPTS GIVEN. FROM UNIT BY WC, ACCOMPANIED BY NICOLASA, C ARCHITECT.
== END 2018-06-06 18:00 | disposition home or self-care (01) | DRG 432 ==
LOC: ER 01:46 → EROBS 03:33 → 4W 04:46
PROVIDERS: Emergency Medicine; Hospitalist; Internal Medicine Gastroenterology; Nurse Practitioner; ADMIT Internal Medicine
PROC: 0W9G3ZZ Drainage of Peritoneal Cavity, Percutaneous Approach (ICD-10-PCS; principal; 2018-06-03)
DX: K70.31 Alcoholic cirrhosis of liver with ascites (principal); K85.20 Alcohol induced acute pancreatitis without necrosis or infection; K76.6 Portal hypertension; I85.10 Secondary esophageal varices without bleeding; K86.3 Pseudocyst of pancreas; K86.0 Alcohol-induced chronic pancreatitis; F10.10 Alcohol abuse, uncomplicated; B19.20 Unspecified viral hepatitis C without hepatic coma; F41.9 Anxiety disorder, unspecified; D47.3 Essential (hemorrhagic) thrombocythemia; D64.9 Anemia, unspecified; I86.4 Gastric varices; F14.10 Cocaine abuse, uncomplicated; R16.1 Splenomegaly, not elsewhere classified; I86.8 Varicose veins of other specified sites; E87.6 Hypokalemia; Z98.891 History of uterine scar from previous surgery; Z87.891 Personal history of nicotine dependence; Z79.899 Other long term (current) drug therapy; Z90.49 Acquired absence of other specified parts of digestive tract; Z88.0 Allergy status to penicillin; Z88.6 Allergy status to analgesic agent; Z88.8 Allergy status to other drugs, medicaments and biological substances; Z80.0 Family history of malignant neoplasm of digestive organs
CPT/HCPCS: 10045

== ENCOUNTER 2018-06-10 04:10 | Inpatient (IN) | payer OTHER ==
[~2018-06-10] VITALS: Ht 144.8 cm; Wt 55.8 kg
[~2018-06-10 04:10] MED LIST changes: +ALDACTONE50 MG PO; +ATIVAN1 MG PO; +HYDROCODONE-AP1 EAC6 PO; +LASIX 40 MG TAB40 M1 PO; +ONDANSETRON HCL4 M2 PO
[2018-06-10 04:11] VITALS: BP 114/86
[2018-06-10 04:35] LABS: BASOPHILS 0.7 % (0.0-2.0); EOSINOPHILS 0.4 % (0.0-3.0); HEMATOCRIT 32.6 % (37.0-47.0); HEMOGLOBIN 10.7 gm/dL (12.0-15.0); LYMPHOCYTES 11.8 % (24.0-44.0); MCH 28.8 pg (26.0-34.0); MCHC 32.7 g/dL (28.0-37.0); MONOCYTES 6.6 % (1.0-8.0); PLATELET COUNT 507 thou/uL (150-400); POLYS 80.5 % (36.0-66.0); RBC 3.71 mil/uL (4.20-5.00); WBC 13.7 thou/uL (4.0-11.0)
[2018-06-10 04:44] LABS: CALCIUM 9.1 mg/dL (8.5-10.1); CREATININE 0.6 mg/dL (0.6-1.0); POTASSIUM 3.8 mmol/L (3.5-5.1)
[2018-06-10 04:50] LABS: ALBUMIN 3.8 g/dL (3.4-5.0); TOTAL BILIRUBIN 1.1 mg/dL (<0.1-1.0); TOTAL PROTEIN 8.1 g/dL (6.4-8.2)
--- NOTE | 2018-06-10 04:50 | NUR ---
CALLED LAB TO ASSIST WITH THE 2ND SET OF BLOOD CULTURES
[2018-06-10 04:57] LABS: AMP/METHAMP Negative (Negative); BARBITURATES Negative (Negative); BENZODIAZEPINES Negative (Negative); COCAINE Negative (Negative); METHADONE Negative (Negative); OPIATES POSITIVE (Negative); PCP Negative (Negative)
--- NOTE | 2018-06-10 05:48 | NUR ---
PT STATED SHE IS NOT ALLERGIC TO PENICILLINS TO HER KNOWLEDGE
[2018-06-10 05:59] VITALS: BP 119/78
[2018-06-10 06:16] VITALS: BP 132/90
[2018-06-10 07:29] VITALS: BP 120/71
[2018-06-10 10:52] LABS: HEMATOCRIT 27.1 % (37.0-47.0); HEMOGLOBIN 9.1 gm/dL (12.0-15.0); MCH 29.1 pg (26.0-34.0); MCHC 33.5 g/dL (28.0-37.0); MCV 86.7 fL (80.0-100.0); RBC 3.12 mil/uL (4.20-5.00); RDW 18.2 % (10.5-14.5); WBC 11.8 thou/uL (4.0-11.0)
[2018-06-10 10:59] LABS: CALCIUM 8.5 mg/dL (8.5-10.1); CREATININE 0.6 mg/dL (0.6-1.0); POTASSIUM 3.5 mmol/L (3.5-5.1)
[2018-06-10 11:03] LABS: INR 1.3; PROTIME 13.2 Seconds (9.3-11.4)
[2018-06-10 14:59] VITALS: BP 117/80
[2018-06-10 16:57] LABS: SOURCE PARACENTESIS
[2018-06-10 16:58] LABS: CLARITY SLIGHTLY CLOUDY; COLOR YELLOW; TOTAL VOLUME 60 mL
[2018-06-10 17:03] LABS: SOURCE PARACENTESIS
[2018-06-10 17:24] LABS: BF NUCLEATED CELLS 487; BF RBC 732
[2018-06-10 17:58] LABS: BF MACROPHAGE 34; BF NEUTROPHILS 17
--- NOTE | 2018-06-10 21:07 | NUR ---
Assumed pt care this am, send stool sample for c-diff and it came out positive. Pt went down for paracenthesis, pulled 1560 ml, abdomen is softer and less pain in noted. Initially pain and anti anxiety medication was given and partial relief was noted. Maintained on clear liquids. POC followed endorsed to the night nurse pts tendency to want pain meds , on the dot and the lab results.
[2018-06-10 21:21] VITALS: BP 103/62
[2018-06-10 22:17] LABS: FOLIC ACID 21.7 ng/mL (8.6-58.9); TSH 1.186 uIU/mL (0.358-3.740)
--- NOTE | 2018-06-11 02:26 | NUR ---
PT UP MOST OF THE NIGHT PT RATING HER PAIN 10 OUT OF 10 PT GIVEN DILAUDED NO COMPLAINTS OF NAUSEA.
[2018-06-11 04:44] VITALS: BP 112/75
[2018-06-11 09:08] LABS: BODY FLUID ALBUMIN 2.8 g/dL (()); BODY FLUID AMYLASE 33 U/L (()); BODY FLUID GLUCOSE 96 mg/dL (()); BODY FLUID LDH 94 IU/L (()); BODY FLUID PROTEIN 4.7 g/dL (())
--- NOTE | 2018-06-11 09:30 | NUR ---
cm visited with pt at bedside, rt dcp, safe net packet, aa, [facility] inpt and [facility] inpt treatment programs. kingsley reported " i go to aa, no sponsor. oh i can not go to inpt treatment, that will just not work, i need to found job, my just started working. live with mother in-law, and my little steffenua. do not like that needle they used to drain the fluid yesterday."/pt. provided safe net packet, pt not receptive to alcohol treatment programs. will cont following as needed for dc needs. dcp home
--- NOTE | 2018-06-11 09:42 | NUR ---
Nutrition: Admitted for abdominal pain, N/V. Seen for pancreatitis diagnosis. Hx of ETOH cirrhosis, hep c. States hasnt had an appetite for last few weeks, 1 meal/day with vomiting. On clear liquid diet, but states she is starving and wants a sandwich. Ascites present with paracenthesis 06/10. UBW 120 lbs, current 123 lbs. Ordering Ensure Clear BID. Low nutrition risk.
[2018-06-11 14:16] VITALS: BP 90/54
[2018-06-11 14:40] LABS: URINE BILIRUBIN NEGATIVE (Negative); URINE BLOOD NEGATIVE (Negative); URINE CLARITY CLEAR; URINE COLOR YELLOW; URINE GLUCOSE-RANDOM* NEGATIVE (Negative); URINE KETONES NEGATIVE (Negative); URINE LEUKOCYTES-REFLEX NEGATIVE (Negative); URINE NITRITE-REFLEX NEGATIVE (Negative); URINE PROTEIN (DIPSTICK) NEGATIVE (Negative); URINE UROBILINOGEN 0.2 E.U./dl (0.2-1.0)
--- NOTE | 2018-06-11 18:05 | NUR ---
PT A&OX4, VSS. PT HAS ABD. PAIN AND IS BEING MANAGED WITH DILAUDED. PT DIET ADVANCED TO SOFT AND IS TOLERATING DIET. PLAN IS TO GET PT EATING AND TO COMPLETE ANTIBIOTICS TO ASSIST WITH CDIFF. WILL CONTINUE TO MONITOR.
[2018-06-11 18:58] VITALS: BP 110/65
--- NOTE | 2018-06-12 01:02 | NUR ---
PT GIVEN DIALUDED FOR PAIN AND ATIVAN FOR ANXIETY PT UP MOST OF THE NIGHT NO ISSUES OVERNIGHT.
[2018-06-12 05:24] VITALS: BP 102/61
[2018-06-12 07:21] VITALS: BP 127/77
[2018-06-12 14:47] VITALS: BP 106/70
--- NOTE | 2018-06-12 14:59 | NUR ---
PT A&OX4 WITH STABLE VS. PT HAS PAIN IN ABD AND RATES IT BETWEEN 8-10. PAIN IS BEING CONTROLLED WITH DILAUDED AND OXYCODONE. PT DILAUDED CHANGED FROM Q4 TO Q8 AND OXCONDONE NEW MEDICATION OF TODAY. PT CONTINUES TO TOLERATE SOFT DIET. NO OTHER CONCERNS AT THIS TIME BY PT. WILL CONTINUE TO MONITOR.
--- NOTE | 2018-06-12 16:06 | PATH ---
[facility] [address] [place] [address] PATHOLOGY RPT PROCEDURE Name: CARMELO BROWN Room #: 464-P [facility] IN ..#: [id number] ������������������ Admission: 06/10/18 ������������������ Date of : 85 Discharge: Report #: [id number] Path Case #: [id number] Note [facility] Accession Number: [id number] TESTS RESULT FLAG UNITS REF RANGE LAB Clinician Provided Cytology Information No. of containers..01 Other (Miscellaneous) Source: ABDOMINAL FLUID DIAGNOSIS: 02 ABDOMINAL FLUID NEGATIVE FOR MALIGNANT CELLS. MESOTHELIAL CELLS ARE PRESENT. THIS INTERPRETATION INCLUDES EVALUATION OF A CELL BLOCK. REACTIVE CELLULAR CHANGES IN A BACKGROUND OF CHRONIC INFLAMMATION. Pathologist ICD10: 02 K86.1 Signed out by: 02 Kourtney Lopez MD, Pathologist NPI- [id number] Performed by: Mackenzie Macias, Airport Planner ([facility]) Gross description: 01 20ML, YELLOW, CLOUDY /LCS FLAG LEGEND: L-Low Normal,H-High Normal,LL-Alert Low,HH-Alert High <-Panic Low,>-Panic High,A-Abnormal,AA-Critical Abnormal Performed at: [address] [place] [address] Gavino Alas MD, [address] [address] Kourtney Lopez MD, Specimen Comment: A courtesy copy of this report has been sent to Specimen Comment: [phone], . Specimen Comment: Report sent to Performed at: [address], [place], [place] [id number] MD Gavino Alas MD Phone: [phone]
[2018-06-12 20:00] VITALS: BP 111/63
--- NOTE | 2018-06-13 02:07 | NUR ---
PT UP MOST OF THE NIGHT PT HAD COMPLAINTS OF PAIN DURING THE NIGHT PT GIVEN DILAUDED AND OXY FOR PAIN PT USED CALL LIGHT EFFECTIVELY.
[2018-06-13 04:06] LABS: HEMATOCRIT 27.7 % (37.0-47.0); HEMOGLOBIN 9.2 gm/dL (12.0-15.0); MCH 29.2 pg (26.0-34.0); MCHC 33.2 g/dL (28.0-37.0); MCV 87.8 fL (80.0-100.0); RBC 3.16 mil/uL (4.20-5.00); RDW 17.7 % (10.5-14.5); WBC 8.6 thou/uL (4.0-11.0)
[2018-06-13 04:17] LABS: CALCIUM 8.3 mg/dL (8.5-10.1); CREATININE 0.7 mg/dL (0.6-1.0); POTASSIUM 4.1 mmol/L (3.5-5.1)
[2018-06-13 04:19] LABS: INR 1.2; PROTIME 12.9 Seconds (9.3-11.4)
[2018-06-13 05:25] VITALS: BP 110/63
[2018-06-13 07:41] VITALS: BP 103/73
[2018-06-13 13:44] VITALS: BP 116/79
[2018-06-13 19:40] VITALS: BP 131/94
--- NOTE | 2018-06-13 20:03 | NUR ---
Maintianed isolation precautions d/t c-diff. Pt claims to have pain that is not relieved when not given on time, prefers hyromorphone and oxycodone. Though is it noted that pt is asleep most of the time and would complain of pain when she sees the nurse or knows it is time for the next dose. Seen by Dr. Yadav, assessed the abdomen to be not tense and paracenhtesis can be pushed for Friday schedule, since GI had mentioned this was not tagged as an urgent case. If based on assessment abdomen is too tense and pain increases, nurse can notify the MD. Pt had one episode of nausea and vomiting, medication given. Pt is now resting, partner is at the bed side.
--- NOTE | 2018-06-14 02:05 | NUR ---
ASSUMED CARE AT 1900. AXOX4. PERSISTENT NAUSEA AND VOMITING. CALLED DIVIDEND DEPOSIT ENTRY CLERK AND GOT AN ORDER FOR COMPAZINE. PER PT, PT IS ALLERGIC TO COMPAZINE. UPDATED ALLERGIES LIST AND REPORTED TO DIVIDEND DEPOSIT ENTRY CLERK. NEW ORDER FOR REGLAND AND FIRST DOSE GIVEN TO PT. PT ALSO REQUESTED FOR REPEAT ATIVAN STATING THAT SHE VOMITTED THE ATIVAN PREVIOUSLY ADMINISTERED TO HER. ISO FOR C.DIFF. NO S/S ACUTE DISTRESS NOTED OR REPORTED AT THIS TIME. WILL CONT TO MONITOR FOR ANY CHANGES IN CONDTION.
[2018-06-14 04:33] VITALS: BP 140/97
[2018-06-14 09:19] VITALS: BP 132/91
[2018-06-14 20:33] VITALS: BP 132/85
--- NOTE | 2018-06-15 03:04 | NUR ---
PT UP MOST OF THE NIGHT PT GIVEN FENTANLY AND OXYCODONE FOR PAIN PT USED CALL LIGHT EFFECTIVELY NO ISSUES OVERNIGHT.
[2018-06-15 04:39] VITALS: BP 108/75
[2018-06-15] MEDS ORDERED: FIRVANQ50 MG/1 ML PO (09:18)
[2018-06-15] MEDS ORDERED: OXYCODONE HCL 55 MG PO (09:19)
[2018-06-15] MEDS ORDERED: PANTOPRAZOLE SO40 M1 PO (09:20)
[2018-06-15 09:34] VITALS: BP 106/61
[2018-06-15 13:02] VITALS: BP 106/61
--- NOTE | 2018-06-15 15:57 | NUR ---
Pt had a paracenthesis this am out put is 3100. Pt up at alessandro only complains of pain and wants pain meds on the dot. Abdomen is smaller and less tense. DC instructions and prescriptions given. IV taken out pt is now dc.
== END 2018-06-15 16:13 | disposition home or self-care (01) | DRG 372 ==
LOC: ER 04:10 → EROBS 05:41 → 4W 05:41
PROVIDERS: Internal Medicine Gastroenterology; Nurse Practitioner; Student in an Organized Health Care Education/Training Program; ADMIT Hospitalist
PROC: 0W9G3ZZ Drainage of Peritoneal Cavity, Percutaneous Approach (ICD-10-PCS; principal; 2018-06-10)
PROC: 0W9G3ZZ Drainage of Peritoneal Cavity, Percutaneous Approach (ICD-10-PCS; 2018-06-15)
DX: A04.72 Enterocolitis due to Clostridium difficile, not specified as recurrent (principal); K86.1 Other chronic pancreatitis; K76.6 Portal hypertension; K86.3 Pseudocyst of pancreas; K70.31 Alcoholic cirrhosis of liver with ascites; B19.20 Unspecified viral hepatitis C without hepatic coma; D47.3 Essential (hemorrhagic) thrombocythemia; F10.10 Alcohol abuse, uncomplicated; K72.90 Hepatic failure, unspecified without coma; D64.9 Anemia, unspecified; K70.11 Alcoholic hepatitis with ascites; E78.1 Pure hyperglyceridemia; Z71.41 Alcohol abuse counseling and surveillance of alcoholic; I86.4 Gastric varices; F41.9 Anxiety disorder, unspecified; Z87.891 Personal history of nicotine dependence; Z98.891 History of uterine scar from previous surgery; Z79.899 Other long term (current) drug therapy; Z88.6 Allergy status to analgesic agent; Z88.0 Allergy status to penicillin; Z88.8 Allergy status to other drugs, medicaments and biological substances; Z80.0 Family history of malignant neoplasm of digestive organs
CPT/HCPCS: 10045

== ENCOUNTER 2018-07-05 04:12 | Inpatient (IN) | payer OTHER ==
[~2018-07-05] VITALS: Ht 144.8 cm; Wt 53.6 kg
[~2018-07-05 04:12] MED LIST changes: +FIRVANQ50 MG/1 ML PO
[2018-07-05 04:13] VITALS: BP 129/89
[2018-07-05 06:22] LABS: ABSOLUTE NEUTROPHILS 9.3 thou/uL (1.4-8.2); BASOPHILS 0.4 % (0.0-2.0); EOSINOPHILS 0.9 % (0.0-3.0); HEMATOCRIT 34.2 % (37.0-47.0); HEMOGLOBIN 11.1 gm/dL (12.0-15.0); LYMPHOCYTES 13.9 % (24.0-44.0); MCH 26.6 pg (26.0-34.0); MCHC 32.5 g/dL (28.0-37.0); MCV 81.7 fL (80.0-100.0); MONOCYTES 10.2 % (1.0-8.0); PLATELET COUNT 557 thou/uL (150-400); POLYS 74.6 % (36.0-66.0); RBC 4.19 mil/uL (4.20-5.00); RDW 17.6 % (10.5-14.5); WBC 12.5 thou/uL (4.0-11.0)
[2018-07-05 06:29] LABS: URINE BLOOD NEGATIVE (Negative); URINE CLARITY CLEAR; URINE COLOR YELLOW; URINE GLUCOSE-RANDOM* TRACE (Negative); URINE KETONES NEGATIVE (Negative); URINE LEUKOCYTES-REFLEX NEGATIVE (Negative); URINE NITRITE-REFLEX NEGATIVE (Negative); URINE PROTEIN (DIPSTICK) 1+ (Negative); URINE SPECIFIC GRAVITY 1.015 (1.005-1.035)
[2018-07-05 06:31] LABS: ICTOTEST (BILI CONFIRMATORY) Negative (Negative); URINE BILIRUBIN NEGATIVE (Negative)
[2018-07-05 06:36] LABS: APTT 25.9 Seconds (24.5-32.8); INR 1.3; PROTIME 13.8 Seconds (9.3-11.4)
[2018-07-05 06:38] LABS: ALBUMIN 2.9 g/dL (3.4-5.0); CREATININE 0.6 mg/dL (0.6-1.0); DIRECT BILIRUBIN 0.4 mg/dL (<0.1-0.3); TOTAL PROTEIN 7.3 g/dL (6.4-8.2)
[2018-07-05 06:39] LABS: BACTERIA-REFLEX None Seen /HPF (None Seen); CASTS None Seen /LPF (None Seen); CRYSTALS None Seen /LPF (None Seen); MUCUS >6 Heavy strn/LPF (None Seen); SQUAMOUS 0-3 Few /LPF (0-3); URINE RBC 0-2 Rare /HPF (0-2); URINE WBC-REFLEX 6-15 Few /HPF (0-5)
[2018-07-05 06:42] LABS: POTASSIUM 2.7 mmol/L (3.5-5.1)
--- NOTE | 2018-07-05 09:41 | NUR ---
INITIAL ATTEMPT TO CALL REPORT, RECEIVING IP RN UNAVAILABLE.
[2018-07-05 10:05] VITALS: BP 117/89
[2018-07-05 11:41] VITALS: BP 117/79
--- NOTE | 2018-07-05 12:48 | NUR ---
PT ARRIVED TO ROOM FROM ED IN STABLE CONDITION AT 10:10. ADMISSION ASSESSMENT COMPLETED. A&O,X4. C/O ABD/BACK PAIN AND ASCITES, PHYSICIAN NOTIFIED FOR NEW PAIN MED ORDERS. PT ANXIOUS, PHYSICIAN AWARE, WAITING FOR MED ORDERS. TACHYCARDIA, HR 120-130'S. BP WNL. ROOM AIR. DENIES CHEST PAIN OR SOA. ABD DISTENDED AND FIRM. C.DIFF POSITIVE, LOOSE STOOLS NOTED. SOME NAUSEA, MEDS GIVEN ORDERED. BRP. SKIN INTACT. WILL CONTINUE TO MONITOR.
[2018-07-05 16:27] VITALS: BP 112/69
[2018-07-05 18:58] VITALS: BP 103/67
--- NOTE | 2018-07-05 23:48 | EKG ---
[address] [address] ELECTROCARDIOGRAM REPORT Name: ALEISHA BROWNLIVE Deluna Room #: 449-I ADM IN ..#: [id number] ������������������ Admission: 07/05/18 ������������������ Attend Phys: Earnest Sanchez MD Discharge: ������������������ Date of : 85 Report #: [id number] ����������������������������������������������������������������� [id number] THIS REPORT FOR: //name// 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1985 Requested By: Chaz Bonilla Order Number: [id number] MD: Bhaskar Bush Measurements Intervals [place] Rate: 133 P: 44 TX: 117 QRS: 54 QRSD: 76 T: -16 QT: 287 QTc: 427 Interpretive Statements Sinus tachycardia Early transition Borderline repolarization abnormality Compared to ECG 12/23/2013 15:04:54 Sinus rhythm no longer present Electronically Signed On 07-05-2018 23:48:06 CDT by Bhaskar Bush [email or web address] ��������������������������������������������� <ELECTRONICALLY SIGNED> ���������������������������������������� By: Bhaskar Bush MD ��������������������������������������������� 07/05/18 2348 [id number] Bhaskar Bush MD /EPI
[2018-07-06 00:01] VITALS: BP 103/67
[2018-07-06 02:52] VITALS: BP 94/62
--- NOTE | 2018-07-06 04:53 | NUR ---
ASSUMED CARE 1900. VSS. ASSESSMENT CHARTED. PT PAIN CONTROLED WITH PRN PAIN MEDS PER EMAR. ISO MAINTAINED. STOMACH DISTENDED, NO BM THIS SHIFT. PLAN FOR LABS AND PARACENTESIS THIS AM. WILL CONTINUE TO MONITOR AND WITH POC.
[2018-07-06 06:29] LABS: MCH 27.5 pg (26.0-34.0); MCHC 33.2 g/dL (28.0-37.0); MCV 82.7 fL (80.0-100.0); RBC 3.27 mil/uL (4.20-5.00); RDW 17.4 % (10.5-14.5)
[2018-07-06 06:39] LABS: CREATININE 0.5 mg/dL (0.6-1.0); POTASSIUM 3.6 mmol/L (3.5-5.1)
[2018-07-06 08:00] VITALS: BP 104/71
[2018-07-06 09:03] LABS: CLARITY SLIGHTLY CLOUDY; COLOR YELLOW; SOURCE ABDOMINAL; TOTAL VOLUME 60 mL
[2018-07-06 09:12] LABS: BF NUCLEATED CELLS 315; BF RBC 277
[2018-07-06 10:29] LABS: BF MACROPHAGE 57; BF NEUTROPHILS 2
[2018-07-06 15:00] VITALS: BP 104/71
[2018-07-06 20:20] VITALS: BP 99/66
[2018-07-07 04:03] VITALS: BP 113/77
[2018-07-07 05:21] LABS: CALCIUM 7.4 mg/dL (8.5-10.1); CREATININE 0.5 mg/dL (0.6-1.0); POTASSIUM 3.7 mmol/L (3.5-5.1)
[2018-07-07 05:42] LABS: HEMATOCRIT 27.5 % (37.0-47.0); MCH 27.4 pg (26.0-34.0); MCHC 32.8 g/dL (28.0-37.0); MCV 83.6 fL (80.0-100.0); RBC 3.29 mil/uL (4.20-5.00); RDW 17.6 % (10.5-14.5); WBC 7.2 thou/uL (4.0-11.0)
--- NOTE | 2018-07-07 06:56 | NUR ---
Pt. rested quietly at intervals during the night when checked on during frequent rounds. She c/o chronic abdominal pain and anxiety. Pt. has been medicated for both (see emar) with some relief noted. Up ad alessandro in her room.
[2018-07-07 08:25] VITALS: BP 106/71
[2018-07-07 14:31] VITALS: BP 132/87
--- NOTE | 2018-07-07 14:43 | NUR ---
PT ADMITTED RELATED TO ASCITES, ABD PAIN. CM REVIEWED CHART AND SPOKE WITH CARE TEAM. PT FAMILIAR TO CM FROM PREVIOUS ADMISSIONS. PT RESIDES IN A HOUSE WITH HER SIG OTHER AND HIS MOTHER WITH 2 STEPS TO ENTER AND NO STEPS SHE USES INSIDE. PT HAD BEEN INDPEDENENT WITH GAIT AND ADLS FEDERAL APPELLATE CLERK. PT HAD BEEN PROVIDED A [employer] [facility] PACKET AND WAS OFFERED RESOURCES AND SUPPORTS FOR SUBSTANCE ABUSE PROGRAMING BUT SHE INDICATED SHE WASN'T INTERESTED. CM TO FOLLOW INDICATED WITH DC PLANNING.
--- NOTE | 2018-07-07 17:01 | NUR ---
PT CONTINUES TO REQUEST PRN PAIN AND ANTIANXIETY MEDICATIONS PER ORDERS. FLUIDS DC PER DR MOORE. PATIENT WILL CHANGE TO PO PAIN MEDICATIONS. COMPLAIN THE ASCITES HAS MORE FLUIDS, LIKELY TO HAVE FLUIDS DRAIN TOMORROW. PT CALLS APPROPRIATELY. ABD TEMPATIC, PAIN MANAGED WITH MEDICATIONS. IV INFILTRATED NEW IV PLACE IN RIGHT FORARM. CONTINUE TO MONITOR
[2018-07-07 19:20] VITALS: BP 109/66
--- NOTE | 2018-07-08 02:05 | NUR ---
ASSUMED CARE AROUND 1900. PERSISTNET PAIN. PAIN MEDS CHANGED PER AND PER MD, DO NOT CALL PARTS CATALOGER FOR INCREASE OR RELIEF DOSE. NOTED AND CAMMUNICATED TO PT. ABDOMEN IS LARGE AND DISTENDED WITH POSITIVE BOWEL SOUNDS. LORAZEPAM FOR ANXIETY. ST ON TELE. C.DIFF CAME BACK POSITIVE. ALREADY ON PO ATB AND ISOLATION. NO S/S ACUTE DISTRESS NOTED OR REPORTED AT THIS TIME. WILL CONT TO MONITOR FOR ANY CHANGES IN CONDITION.
[2018-07-08 03:10] VITALS: BP 92/61
[2018-07-08 07:35] VITALS: BP 91/55
[2018-07-08 09:17] LABS: HEMATOCRIT 27.1 % (37.0-47.0); HEMOGLOBIN 8.9 gm/dL (12.0-15.0); MCH 27.3 pg (26.0-34.0); MCHC 32.9 g/dL (28.0-37.0); RBC 3.27 mil/uL (4.20-5.00); RDW 17.6 % (10.5-14.5); WBC 6.6 thou/uL (4.0-11.0)
[2018-07-08 09:40] LABS: ALBUMIN 1.8 g/dL (3.4-5.0); CALCIUM 8.4 mg/dL (8.5-10.1); CREATININE 0.5 mg/dL (0.6-1.0); MAGNESIUM 1.8 mg/dL (1.8-2.4); POTASSIUM 4.2 mmol/L (3.5-5.1); TOTAL BILIRUBIN 0.5 mg/dL (<0.1-1.0)
[2018-07-08 10:16] VITALS: BP 91/55
--- NOTE | 2018-07-08 13:02 | HC ---
[facility] [place] [address] CONSULTATION Name: CARMELO BROWN Regi Room #: 449-I ADM IN M.R.#: [id number] Admission: 07/05/18 ������������������ Attend Phys: Earnest Sanchez MD Discharge: ������������������ Date of : 85 Report #: [id number] THIS REPORT FOR: //name// CC: FAM unknown Earnest Sanchez DATE OF SERVICE: 07/07/2018 REASON FOR CONSULTATION: I was asked to evaluate concerning peritonitis. HISTORY OF PRESENT ILLNESS: The patient is a 33-year-old with known history of alcoholic and hepatitis C positive cirrhosis of the liver with portal hypertension, biliary dyskinesia, ascites, gastric varices, who has been followed at [facility], Hepatology Department. Also, diagnosed with C. difficile colitis recently. Although she is hepatitis C positive, her viral load has been negative. She continues to drink alcohol. Presents now with increased abdominal pain, low-grade fever, nausea, vomiting and diarrhea. She has had increased ascites. Yesterday underwent paracentesis, cell count was 315 with differential noting 57% monocytes, 40% lymphocytes and 2% neutrophils. She has been treated with ceftriaxone. Vancomycin has been discontinued. The patient has not been compliant with the medications at home. She has had temperature up to 100.4 degrees. She describes her abdominal pain as mostly in the epigastric region with radiation to her back. Does have some crampy abdominal pain. She has loose stools. Initially with nausea and vomiting, now it has subsided, she is just now nauseated. Tapping of the fluid helped some of the discomfort, but continues to require narcotics for pain. REVIEW OF SYSTEMS: She has had no cough or sputum production. No dysuria or frequency. No vaginal discharge. States menses have been normal. A 10-point review of systems was negative other than described above. ALLERGIES: ASPIRIN; NAPROSYN; PENICILLIN, although does tolerate amoxicillin; COMPAZINE, TRAMADOL, TORADOL, DARVOCET. MEDICATIONS: As noted on her MAR including ceftriaxone. PAST MEDICAL HISTORY: Pancreatitis with pseudocyst, cirrhosis, biliary dyskinesia, alcohol abuse, hepatitis C, splenic thrombosis, cholecystectomy, . FAMILY HISTORY: Noncontributory. SOCIAL HISTORY: Past smoker, heavy alcohol use. PHYSICAL EXAMINATION: VITAL SIGNS: She is afebrile with maximum temperature 100.4 degrees, pulse 120, [facility] [address] [place] [address] CONSULTATION Name: CARMELO BROWN Room #: 449-I [facility]#: [id number] Admission: 07/05/18 ������������������ Attend Phys: Earnest Sanchez MD Discharge: ������������������ Date of : 85 Report #: [id number] blood pressure 113/77. GENERAL: The patient was alert, appeared to be in discomfort. Had evidence of ascites with protuberant abdomen. SKIN: No rash or decubitus. No palpable adenopathy. HEENT: Eyes without scleral icterus. Mouth without mucositis. NECK: Supple, with no thyromegaly or mass. LUNGS: Clear. HEART: Tachycardic and regular with no appreciable murmur, gallop or rub. ABDOMEN: Distended. She had ascites. She was tender mostly in the epigastric region with guarding. No definite rebound. No hepatosplenomegaly or mass appreciated. GENITOURINARY: External genitalia unremarkable with no lesions noted. RECTAL: Not performed. EXTREMITIES: Without edema, clubbing or cyanosis. NEUROLOGIC: Unremarkable with normal cranial nerves. Strength in upper and lower extremities is normal and sensation intact. LABORATORY STUDIES: Sodium 138, potassium 3.7, bicarbonate 24, creatinine 0.5. Hemoglobin 9, WBC 7.2, platelet count 336,000. Lipase 79, alkaline phosphatase 257, bilirubin 1, AST 93, ALT 43. Urinalysis unremarkable. Paracentesis 315 cells, 2% neutrophils, 40% lymphs, 57% macrophages, over 3.5 liters was drained. IMPRESSION: A 33-year-old with: 1. Monocytic macrophage with predominant peritoneal reaction with no evidence of SBP. This is in the setting of alcohol abuse and flare of her liver disease. 2. Clostridium difficile colitis. 3. Alcoholism. RECOMMENDATION: We will continue with ceftriaxone empirically. Restart vancomycin while awaiting stool for C. diff. Send off peritoneal fluid for AFB and fungus cultures. Alcohol cessation and treat for potential alcohol withdrawal. ��������������������������������������������� <ELECTRONICALLY SIGNED> ���������������������������������������� By: Laith Michel MD ��������������������������������������������� 07/08/18 1302 [id number] Laith Michel MD /nt
[2018-07-08 13:17] VITALS: BP 112/71
[2018-07-08 15:26] VITALS: BP 104/61
--- NOTE | 2018-07-08 17:26 | NUR ---
CONTINUES PROGRESS TOWARDS GOALS. PARACENTHESIS FRIDAY. DRESSING OVER PLACED OVER RIGHT LOWER ABD DUE TO FLUID LEAKING FROM PREVIOUS PARACENTHESIS SITE. CONTINUES TO REQUEST PAIN AND ANTIANXIET MEDS PER PRN ORDERS. ON ISOLATION FOR POSITIVE CDIFF
[2018-07-08 19:01] VITALS: BP 111/70
--- NOTE | 2018-07-09 02:13 | NUR ---
ASSUMED CARE AROUND 1899. AXOX4. PERSISTENT ABDOMINAL PAIN. TX PER MD ORDER. DRESSING TO RUQ ABD C+D+I. NO S/S ACUTE DISTRESS NOTED OR REPORTED AT THIS TIME. WILL CONT TO MONITOR FOR ANY CHAGNES IN CONDITION.
[2018-07-09 03:50] VITALS: BP 97/98
[2018-07-09 07:20] VITALS: BP 99/64
[2018-07-09 13:43] VITALS: BP 100/66
--- NOTE | 2018-07-09 16:30 | NUR ---
PHYSICIAN INDICATED THAT PT IS PROGRESSING TOWARD GOAL OF DC HOME. DC IS ANTICIPATED FOR TOMORROW Friday07/10/18. CM TO FOLLOW INDICATED WITH DC PLANNING.
--- NOTE | 2018-07-09 18:19 | NUR ---
PT A&OX4, VSS, PAIN MANAGED WITH MEDICATION. RATES PAIN LEVEL AT CONSTANT 10, AND STATES SHE THINKS HER ABD GIRTH IS INCREASING. A SECOND PARACENTESIS SCHEDULED. IV REPLACED IN RIGHT FOREARM. FALL PRECAUTIONS IN PLACE, WILL CONTINUE TO MONITOR.
[2018-07-09 19:22] VITALS: BP 107/68
--- NOTE | 2018-07-10 03:07 | NUR ---
PATIENT AOX4 MAKES NEEDS KNOWN. PATIENT HAS ASCIATES, DENIED SHORTNESS OF AIR OR DISTRESS THIS SHIFT. PAIN CONTROLLED THIS SHIFT. PATIENT IS UP AT COLE. PATIENT IN BED ASLEEP AT THIS TIME BREATHIBNG REGULAR AND UNLABOURED.
[2018-07-10 04:26] VITALS: BP 96/66
[2018-07-10 07:00] VITALS: BP 120/70
--- NOTE | 2018-07-10 12:38 | NUR ---
CARE TEAM INDICATED THAT PT WILL BE MEDICALLY STABLE TO DISHCARGE HOME THIS DAY AFTER PARACENTESIS. PT HAD BEEN GIVEN INFO TO INITIATE FOLLOW UP [facility] INFO. PT INDICATED SHE WASN'T INTERESTED IN RESOURCES FOR SUBSTANCE ABUSE PROGRAMING. NO OTHER CM INTERVENTION INDICATED AT THIS TIME. CASE CLOSED.
[2018-07-10] MEDS ORDERED: PERCOCET 7.5-31 EACH PO (14:19)
[2018-07-10] MEDS ORDERED: FIRVANQ50 MG/1 ML PO (14:31)
[2018-07-10 15:05] VITALS: BP 120/70
[2018-07-10 15:56] VITALS: BP 100/64
--- NOTE | 2018-07-10 18:19 | NUR ---
PT DISCHARGED HOME, LEFT A&OX4, VSS, PAIN IN ABD AND MANAGED WITH PAIN MEDICATION. PARACENTESIS DONE TODAY WITH 1900MLS TAKEN OFF. PT INSTRUCTED TO CHANGE 4X4 WHEN NEEDED. ALL DISCHARGE INSTRUCTIONS AND PRESCRIPTIONS RECEIVEDS AND UNDERSTANDING VERBALIZED. ALL BELONGINGS WITH PATIENT.
== END 2018-07-10 18:25 | disposition home or self-care (01) | DRG 441 ==
LOC: ER 04:12 → EROBS 08:42 → 4W 10:05 → ENTRNSPT 07-07 15:10 → 4W 07-10 18:25
PROVIDERS: Emergency Medicine; Internal Medicine; ADMIT Hospitalist
PROC: 0W9G3ZZ Drainage of Peritoneal Cavity, Percutaneous Approach (ICD-10-PCS; principal; 2018-07-06)
PROC: 0W9G3ZZ Drainage of Peritoneal Cavity, Percutaneous Approach (ICD-10-PCS; 2018-07-10)
DX: K72.90 Hepatic failure, unspecified without coma (principal); E43 Unspecified severe protein-calorie malnutrition; K65.9 Peritonitis, unspecified; A04.72 Enterocolitis due to Clostridium difficile, not specified as recurrent; K86.1 Other chronic pancreatitis; K76.6 Portal hypertension; K86.3 Pseudocyst of pancreas; F11.20 Opioid dependence, uncomplicated; K70.31 Alcoholic cirrhosis of liver with ascites; E87.6 Hypokalemia; F10.20 Alcohol dependence, uncomplicated; D64.9 Anemia, unspecified; D47.3 Essential (hemorrhagic) thrombocythemia; I86.4 Gastric varices; F41.9 Anxiety disorder, unspecified; B19.20 Unspecified viral hepatitis C without hepatic coma; Z87.891 Personal history of nicotine dependence; Z68.25 Body mass index [BMI] 25.0-25.9, adult; Z98.891 History of uterine scar from previous surgery; Z90.49 Acquired absence of other specified parts of digestive tract; Z79.899 Other long term (current) drug therapy; Z91.14 Patient's other noncompliance with medication regimen; Z88.0 Allergy status to penicillin; Z88.6 Allergy status to analgesic agent; Z88.8 Allergy status to other drugs, medicaments and biological substances; Z80.0 Family history of malignant neoplasm of digestive organs
CPT/HCPCS: 10045

== ENCOUNTER 2018-07-19 06:29 | Inpatient (IN) | payer OTHER ==
[2018-07-19] VITALS (7 sets, daily range): BP systolic 113–141; BP diastolic 77–97
[~2018-07-19] VITALS: Ht 144.8 cm; Wt 58.5 kg
[~2018-07-19 06:29] MED LIST changes: +PERCOCET 7.5-31 EACH PO
[2018-07-19 06:54] LABS: URINE BLOOD NEGATIVE (Negative); URINE CLARITY CLEAR; URINE COLOR YELLOW; URINE GLUCOSE-RANDOM* NEGATIVE (Negative); URINE KETONES TRACE (Negative); URINE LEUKOCYTES-REFLEX NEGATIVE (Negative); URINE NITRITE-REFLEX NEGATIVE (Negative); URINE PROTEIN (DIPSTICK) 1+ (Negative); URINE UROBILINOGEN >= 8.0 E.U./dl (0.2-1.0)
[2018-07-19 06:56] LABS: ICTOTEST (BILI CONFIRMATORY) Negative (Negative); URINE BILIRUBIN NEGATIVE (Negative)
[2018-07-19 07:07] LABS: AMP/METHAMP Negative (Negative); BARBITURATES Negative (Negative); BENZODIAZEPINES Negative (Negative); COCAINE Negative (Negative); METHADONE Negative (Negative); OPIATES Negative (Negative); PCP Negative (Negative)
[2018-07-19 07:23] LABS: HEMATOCRIT 32.6 % (37.0-47.0); HEMOGLOBIN 10.6 gm/dL (12.0-15.0); MCH 26.1 pg (26.0-34.0); MCHC 32.6 g/dL (28.0-37.0); MCV 79.9 fL (80.0-100.0); RBC 4.08 mil/uL (4.20-5.00); RDW 17.9 % (10.5-14.5); WBC 10.4 thou/uL (4.0-11.0)
[2018-07-19 07:35] LABS: ALBUMIN 2.6 g/dL (3.4-5.0); CALCIUM 8.5 mg/dL (8.5-10.1); CREATININE 0.5 mg/dL (0.6-1.0); TOTAL BILIRUBIN 0.7 mg/dL (<0.1-1.0); TOTAL PROTEIN 7.1 g/dL (6.4-8.2)
[2018-07-19 07:38] LABS: POTASSIUM 2.9 mmol/L (3.5-5.1)
[2018-07-19 07:39] LABS: APTT 26.7 Seconds (24.5-32.8); INR 1.2; PROTIME 12.4 Seconds (9.3-11.4)
[2018-07-19 07:48] LABS: CASTS None Seen /LPF (None Seen); SQUAMOUS 0-3 Few /LPF (0-3); URINE RBC None Seen /HPF (0-2); URINE WBC-REFLEX 0-5 Rare /HPF (0-5)
[2018-07-19 07:49] LABS: BACTERIA-REFLEX 1-9 Few /HPF (None Seen); CRYSTALS None Seen /LPF (None Seen)
[2018-07-19 08:29] LABS: BF NUCLEATED CELLS 159; BF RBC 232
[2018-07-19 08:31] LABS: TOTAL VOLUME 32 mL
[2018-07-19 08:32] LABS: CLARITY CLEAR; COLOR YELLOW
[2018-07-19 09:19] LABS: BF NEUTROPHILS 7; SOURCE ABDOMINAL FLUID
--- NOTE | 2018-07-19 18:56 | NUR ---
ASSUMED CARE OF PT AT 1115. PT ALERT AND ORIENTED X4 REPORTING A PAIN OF 10. PT PRESENTED WITH ASCITES WITH A SEVERELY DISTENDED ABDOMEN. PARACENTESIS PERFORMED IN ER. DR. GONZALES ASKED KANWAL ZAVALA, STUDENT NURSE TO CONSULT IR TO HAVE A THERAPEUTIC PARACENTESIS, BUT IR WAS UNAVAILABLE FOR A THERAPEUTIC PARACENTESIS. PT UP AD COLE. PT PRESENTS WITH TACHYCARDIA WITH HEART RATE IN THE 120'S. AT 1700, PT'S VITALS SHOWED A TEMPERATURE OF 100.5. SEPSIS SCREEN WAS COMPLETED, AND SEPSIS WAS NOT IDENTIFIED. PT EXPERIENCING DIFFICULTY BREATHING DUE TO ASCITES, SO PT WAS PUT ON 2 L NASAL CANNULA TO HELP EASE BREATHING. PT ON CIWA PROTOCOL AND SCORED 11 AT THE HIGHEST AND LORAZEPAM 2MG WAS GIVEN PRESCRIBED. WILL CONTINUE TO MONITOR PT AIRWAY, PAIN, AND TEMPERATURE.
--- NOTE | 2018-07-19 19:14 | NUR ---
I have reviewed the documentation by KANWAL ZAVALA, [facility] STUDENT, from 699 to 1913 and I concur with it. PAMELLA CACERES, RN
[2018-07-20 03:16] LABS: HEMATOCRIT 23.5 % (37.0-47.0); MCH 26.6 pg (26.0-34.0); MCHC 32.8 g/dL (28.0-37.0); MCV 81.2 fL (80.0-100.0); RBC 2.9 mil/uL (4.20-5.00); RDW 17.5 % (10.5-14.5); WBC 5.9 thou/uL (4.0-11.0)
[2018-07-20 03:28] LABS: HEMOGLOBIN 7.7 gm/dL (12.0-15.0)
[2018-07-20 03:40] LABS: CALCIUM 7.2 mg/dL (8.5-10.1); CREATININE 0.5 mg/dL (0.6-1.0); POTASSIUM 3.3 mmol/L (3.5-5.1)
[2018-07-20 04:39] VITALS: BP 108/73
--- NOTE | 2018-07-20 06:13 | NUR ---
ASSUME CARE 1900. PT/VITALS STBALE. COMPLAINS OF CANSTABT ABDOMINAL PAIN. ABDOMEN IS DISTENDED/FIRM. ADEQUATE REST NOTED THROUGH THE NIGHT. ASSESSMENT CHARTED. PROGRESSING MODERATELY WITH POC. NO WITHDRAWAS NOTED YET. PT IS UP AD COLE AND A/O. TACHY ON MONITOR. PLAN IS FOR PT TO HAVE THERAPEUTIC PARACENTESIS BY IR. WILL CONTINUE TO MONITOR AND FOLLOW WIHT POC
[2018-07-20 07:00] VITALS: BP 103/62
[2018-07-20 07:33] VITALS: BP 109/73
[2018-07-20 09:31] LABS: HEMATOCRIT 25.3 % (37.0-47.0); HEMOGLOBIN 8.3 gm/dL (12.0-15.0); MCH 26.5 pg (26.0-34.0); MCHC 32.8 g/dL (28.0-37.0); MCV 80.7 fL (80.0-100.0); RBC 3.13 mil/uL (4.20-5.00); RDW 17.9 % (10.5-14.5); WBC 5.8 thou/uL (4.0-11.0)
[2018-07-20 09:43] LABS: CALCIUM 7.7 mg/dL (8.5-10.1); CREATININE 0.3 mg/dL (0.6-1.0); INR 1.4; POTASSIUM 3.9 mmol/L (3.5-5.1); PROTIME 14.1 Seconds (9.3-11.4)
[2018-07-20 12:00] VITALS: BP 116/86
[2018-07-20 12:25] VITALS: BP 116/86
[2018-07-20 14:26] VITALS: BP 116/86
--- NOTE | 2018-07-20 19:43 | NUR ---
ASSUMED CARE OF PT AT 0700. PT A&OX4, PAIN AND ANXIETY WAS MANAGED WITH MEDS, REST AND THERAPEUTIC CONVERSATION. PT NEEDED A PARATHENTISIS AND DR. ARAIZA CALLED ORDERS RECEIVED AND PLACED. DISCHARGED ORDERS WERE RECEIVED. PT DISCHARGED TO HOME. TWO IV'S REMOVED AND PT WAS NOT ON TELE - MED/SURG. PT COMMUNICATED UNDERSTANDING OF DISCHARGE INSTRUCTIONS. PT EDUCATED ON CORRELATION BETWEEN ALCOHOL AND ASCITES S/P LIVER DAMAGE.
--- NOTE | 2018-07-20 20:19 | NUR ---
I have reviewed the documentation by KANWAL ZAVALA, [facility] STUDENT, from 0700 to DISCHARGE and I concur with it. PAMELLA CACERES
== END 2018-07-20 15:00 | disposition home or self-care (01) | DRG 434 ==
LOC: ER 06:29 → EROBS 09:33 → 2N 10:55 → ENTRNSPT 07-20 14:49 → 2N 07-20 15:00
PROVIDERS: Hospitalist; Student in an Organized Health Care Education/Training Program; ADMIT Internal Medicine
PROC: 0W9G3ZZ Drainage of Peritoneal Cavity, Percutaneous Approach (ICD-10-PCS; principal; 2018-07-20)
DX: K70.31 Alcoholic cirrhosis of liver with ascites (principal); B19.20 Unspecified viral hepatitis C without hepatic coma; E87.6 Hypokalemia; K82.8 Other specified diseases of gallbladder; F10.120 Alcohol abuse with intoxication, uncomplicated; Z98.891 History of uterine scar from previous surgery; Z87.891 Personal history of nicotine dependence; Z79.899 Other long term (current) drug therapy; Z90.49 Acquired absence of other specified parts of digestive tract; Z88.6 Allergy status to analgesic agent; Z88.0 Allergy status to penicillin; Z88.8 Allergy status to other drugs, medicaments and biological substances; Z80.0 Family history of malignant neoplasm of digestive organs
CPT/HCPCS: 10081

== ENCOUNTER 2018-07-24 18:43 | Inpatient (IN) | payer OTHER ==
[~2018-07-24] VITALS: Ht 144.8 cm; Wt 56.7 kg
[2018-07-24 21:04] LABS: URINE BILIRUBIN 1+ (Negative); URINE BLOOD NEGATIVE (Negative); URINE CLARITY CLEAR; URINE COLOR YELLOW; URINE GLUCOSE-RANDOM* TRACE (Negative); URINE KETONES NEGATIVE (Negative); URINE LEUKOCYTES-REFLEX NEGATIVE (Negative); URINE NITRITE-REFLEX NEGATIVE (Negative); URINE PROTEIN (DIPSTICK) TRACE (Negative)
[2018-07-24 21:05] LABS: ICTOTEST (BILI CONFIRMATORY) Positive (Negative)
[2018-07-24 21:05] LABS: ABSOLUTE NEUTROPHILS 9.1 thou/uL (1.4-8.2); BASOPHILS 0.9 % (0.0-2.0); EOSINOPHILS 0.6 % (0.0-3.0); HEMATOCRIT 29.1 % (37.0-47.0); HEMOGLOBIN 9.6 gm/dL (12.0-15.0); LYMPHOCYTES 15.6 % (24.0-44.0); MCH 26.7 pg (26.0-34.0); MCHC 33.2 g/dL (28.0-37.0); MCV 80.5 fL (80.0-100.0); MONOCYTES 9.3 % (1.0-8.0); PLATELET COUNT 338 thou/uL (150-400); POLYS 73.6 % (36.0-66.0); RBC 3.61 mil/uL (4.20-5.00); RDW 18.6 % (10.5-14.5); WBC 12.4 thou/uL (4.0-11.0)
[2018-07-24 21:12] LABS: CALCIUM 7.9 mg/dL (8.5-10.1); CREATININE 0.5 mg/dL (0.6-1.0)
[2018-07-24 21:18] LABS: ALBUMIN 2.1 g/dL (3.4-5.0); TOTAL PROTEIN 5.9 g/dL (6.4-8.2)
[2018-07-24 21:20] LABS: APTT 27.4 Seconds (24.5-32.8); INR 1.3; PROTIME 13.6 Seconds (9.3-11.4)
[2018-07-25] VITALS (8 sets, daily range): BP systolic 91–139; BP diastolic 62–98
[2018-07-25 00:08] LABS: BF NUCLEATED CELLS 176; BF RBC 960; CLARITY CLOUDY; COLOR YELLOW; TOTAL VOLUME 22 mL
[2018-07-25 00:38] LABS: BF NEUTROPHILS 11; SOURCE THORACENTESIS
[2018-07-25 00:39] LABS: BF MACROPHAGE 0
--- NOTE | 2018-07-25 03:50 | NUR ---
ADMISSION NOTE: PT ARRIVED TO THE UNIT AT 0115. PT IS ALERT AND ORIENT TIMES FOUR. UP AD COLE TO THE BR. C/O ABD PAIN. PT'S ABD IS DISTENDED, TAUNT AND ASCITIES. VSS, AFEBRILE. MORPHINE GIVEN FOR PAIN. NPO X ICE CHIPS. RIGHT UPPER ARM MIDLINE INTACT, FLUSHES WELL AND DRAW. IN CONTACT ISOLATION FOR C-DIFF R/O. CONSULT FOR IR IN THE AM. WILL CONTINUE TO MONITOR.
[2018-07-25 05:20] LABS: CALCIUM 7.6 mg/dL (8.5-10.1); CREATININE 0.5 mg/dL (0.6-1.0); MAGNESIUM 1.5 mg/dL (1.8-2.4); POTASSIUM 3.2 mmol/L (3.5-5.1)
--- NOTE | 2018-07-25 17:00 | NUR ---
Received awake on bed. On nothing per orem- advised patient. Breathing on room air. With midline at Right upper arm- patent and intact. For paracentesis today as handed over by overnight houseperson, awaiting call from IR. Patient asking for morphine exactly every 3 hours- Dr. Carlos informed; given as prescribed. Per IR, will do procedure on Friday- Dr. Carlos informed. As per Dr. Lee, patient to be on NPO while on IV narcotics- patient informed, for paracentesis on Friday. Patient requested to have IV Ativan- Dr. Grimaldo, given as prescribed.
--- NOTE | 2018-07-25 19:40 | NUR ---
Admitted patient on the unit. Dr. Galindo informed. Breathing on room air. With IV at Left arm, Normal saline 80ml/hr infusing. Patient on falls risk due to episode of loss of consciousness, bed alarm on, falls protocol observed. Visited by relatives today. No episode of nausea and vomiting noted in the floor, No complaints of pain. Patient put on telemetry. EEG done at [facility]. For MRI- checklist done, no schedule of procedure yet. Patient had AM medications taken at home as mentioned by patient's daughter. No edema, no wounds noted.
[2018-07-26 05:39] VITALS: BP 98/68
--- NOTE | 2018-07-26 06:17 | NUR ---
RECEIVED PT'S CARE AT 1920; PT. ON BED; AOX4; RECEIVED PRN PAIN MEDICATION JUST BEFORE SHIFT CHANGE; MAGNESIUM 1.5; [employer]IN RECOVERY WORKER NOTIFIED; ORDERS RECEIVED; MAGNISIUM REPLACE; PT. REQUESTED PRN LORAZEPAM; GIVEN; THROUGH THE NIGHT PT. REQUESTED PRN PAIN MEDICATION Q3H; REQUESTED FOOD AND WATER; PER DR. CERVANTES PT. NPO; INFORMED ABOUT IT; ST. UNDERSTANDING; ST. NOT ABLE TO REST THROUGH THE NIGHT; SBP ON THE 90-100; NO C/O HEADACHE OR DIZZINESS; PT. ST. LOW 100 -90'S IT IS HER BASELINE; ASSESSMENT CHARGED; FOLLOWING POC; WILL PASS ON REPORT.
[2018-07-26 07:51] VITALS: BP 103/71
[2018-07-26 15:18] VITALS: BP 102/71
--- NOTE | 2018-07-26 16:57 | NUR ---
Received awake on bed. With episode of hypoglycemia, pre-breakfast CBG of 66- 2 apple juice given, blood sugar recheck 122mg/dl- Dr Carlos and Dr. Lee informed. To start D5NS at 50cc/hr, given as prescribed. With midline at R Upper arm- intact and patent. Patient asks for morphine every 3 hours, clock watching- both doctors informed; to maintain NPO while on IV narcotics. Patient for paracentesis tomorrow AM.
[2018-07-26 20:23] VITALS: BP 100/72
--- NOTE | 2018-07-27 03:14 | NUR ---
Assumed care at 1845. Pt resting in bed. VSS. AOX4. Abdmn distended still having pain 10/. Has been requesting morphine around the clock. Pt has been NPO. Paracentesis scheduled for today. Pt is not on CIWA. No identified needs.Call light within reach. Will continue to monitor.
[2018-07-27 05:00] VITALS: BP 102/72
[2018-07-27 05:56] LABS: ABSOLUTE NEUTROPHILS 2.3 thou/uL (1.4-8.2); BASOPHILS 0.8 % (0.0-2.0); EOSINOPHILS 3.8 % (0.0-3.0); HEMATOCRIT 24.9 % (37.0-47.0); LYMPHOCYTES 25.7 % (24.0-44.0); MCH 26.7 pg (26.0-34.0); MCV 83.5 fL (80.0-100.0); MONOCYTES 10.3 % (1.0-8.0); POLYS 59.4 % (36.0-66.0); RBC 2.98 mil/uL (4.20-5.00); RDW 18.4 % (10.5-14.5); WBC 3.9 thou/uL (4.0-11.0)
[2018-07-27 06:10] LABS: PLATELET COUNT 209 thou/uL (150-400)
[2018-07-27 06:17] LABS: CALCIUM 7.4 mg/dL (8.5-10.1); CREATININE 0.4 mg/dL (0.6-1.0); POTASSIUM 3.5 mmol/L (3.5-5.1)
[2018-07-27 10:00] VITALS: BP 107/73
--- NOTE | 2018-07-27 12:15 | NUR ---
chart review. cm visited with pt at bedside, cont to stated during visit " just need to eat"/pt. education on dr will advance diet when safe and ok for her eat. already go the fluid off and still more fluid i think"/kingsley. intro to cm, transition of care, [facility], [facility], and dcp. " oh i am trying to get job, 1 income is not enough i can not go into inpt treatment. i go to aa. no sponsor but going to get one."/pt. she reported " live home with who works 14 hr per day and mother in law. have 3 kids, they do not stay with me, they live with their dad. independent when feeling ok. 2 weeks sober"/kingsley. re-education on inpt support groups and found pcp. not interested in going anywhere, got to find job, thank you though. july 22oth i think a st lualex not sure who it is with"/pt. will cont following as needed for dc needs.
[2018-07-27 15:00] VITALS: BP 104/75
--- NOTE | 2018-07-27 19:20 | NUR ---
Received awake on bed. With midline at R upper arm, d5Ns at 50ml/hr, infusing well. Patient still on NPO as ordered. Patient asking for morphine IV every 3 hours, clock watching- Dr owen. Went down for paracentesis, consent signed. 3300mls removed from patient. No bleeding or discharges noted at patient's paracentesis site. Breathing on room air. Up ad alessandro. On Accuchecks.
[2018-07-27 19:29] VITALS: BP 113/79
[2018-07-28 03:52] VITALS: BP 97/68
[2018-07-28 07:40] VITALS: BP 105/74
[2018-07-28 14:05] VITALS: BP 108/76
[2018-07-28 15:26] VITALS: BP 108/76
== END 2018-07-28 16:59 | disposition home or self-care (01) | DRG 432 ==
LOC: ER 18:43 → EROBS 23:40 → 4W 23:40
PROVIDERS: Nurse Practitioner Acute Care; Physician Assistant; Student in an Organized Health Care Education/Training Program; ADMIT Family Medicine
PROC: 0W9G3ZZ Drainage of Peritoneal Cavity, Percutaneous Approach (ICD-10-PCS; principal; 2018-07-27)
DX: K70.31 Alcoholic cirrhosis of liver with ascites (principal); E43 Unspecified severe protein-calorie malnutrition; K76.6 Portal hypertension; K86.1 Other chronic pancreatitis; K86.3 Pseudocyst of pancreas; A04.71 Enterocolitis due to Clostridium difficile, recurrent; F11.20 Opioid dependence, uncomplicated; I86.4 Gastric varices; F10.10 Alcohol abuse, uncomplicated; Y90.9 Presence of alcohol in blood, level not specified; D47.3 Essential (hemorrhagic) thrombocythemia; G89.4 Chronic pain syndrome; Z51.5 Encounter for palliative care; D64.9 Anemia, unspecified; B19.20 Unspecified viral hepatitis C without hepatic coma; Z98.891 History of uterine scar from previous surgery; Z91.19 Patient's noncompliance with other medical treatment and regimen; Z88.6 Allergy status to analgesic agent; Z88.0 Allergy status to penicillin; Z80.0 Family history of malignant neoplasm of digestive organs; Z90.49 Acquired absence of other specified parts of digestive tract; Z79.2 Long term (current) use of antibiotics; Z88.8 Allergy status to other drugs, medicaments and biological substances; Z68.27 Body mass index [BMI] 27.0-27.9, adult
CPT/HCPCS: 10045; 27000

== ENCOUNTER 2018-08-04 14:15 | Emergency (ER) | payer OTHER ==
[~2018-08-04] VITALS: Ht 144.8 cm; Wt 59.0 kg
[2018-08-04 14:44] LABS: ABSOLUTE NEUTROPHILS 8.3 thou/uL (1.4-8.2); BASOPHILS 1.3 % (0.0-2.0); EOSINOPHILS 0.6 % (0.0-3.0); HEMATOCRIT 33.9 % (37.0-47.0); HEMOGLOBIN 10.8 gm/dL (12.0-15.0); LYMPHOCYTES 15.5 % (24.0-44.0); MCHC 31.9 g/dL (28.0-37.0); MCV 81.4 fL (80.0-100.0); MONOCYTES 10.2 % (1.0-8.0); PLATELET COUNT 612 thou/uL (150-400); POLYS 72.4 % (36.0-66.0); RBC 4.16 mil/uL (4.20-5.00); RDW 18.8 % (10.5-14.5); WBC 11.5 thou/uL (4.0-11.0)
[2018-08-04 14:53] LABS: CALCIUM 8.1 mg/dL (8.5-10.1); CREATININE 0.5 mg/dL (0.6-1.0); POTASSIUM 3.3 mmol/L (3.5-5.1)
[2018-08-04 14:59] LABS: TOTAL BILIRUBIN 0.5 mg/dL (<0.1-1.0); TOTAL PROTEIN 6.3 g/dL (6.4-8.2)
[2018-08-04 15:00] LABS: APTT 27.3 Seconds (24.5-32.8); INR 1.3; PROTIME 13.6 Seconds (9.3-11.4)
[2018-08-04 18:25] VITALS: BP 109/77
== END 2018-08-04 18:26 | disposition home or self-care (01) ==
LOC: ER 14:15
PROVIDERS: Student in an Organized Health Care Education/Training Program
DX: K74.60 Unspecified cirrhosis of liver (principal); R18.8 Other ascites; B19.20 Unspecified viral hepatitis C without hepatic coma; Z87.891 Personal history of nicotine dependence; Z88.0 Allergy status to penicillin; Z88.5 Allergy status to narcotic agent; Z88.8 Allergy status to other drugs, medicaments and biological substances

== ENCOUNTER 2019-09-12 12:23 | Emergency (ER) | payer OTHER ==
[~2019-09-12] VITALS: Ht 144.8 cm; Wt 58.1 kg
[2019-09-12 13:16] LABS: ABSOLUTE NEUTROPHILS 5.5 thou/uL (1.4-8.2); BASOPHILS 1.2 % (0.0-2.0); EOSINOPHILS 0.3 % (0.0-3.0); HEMATOCRIT 40.4 % (37.0-47.0); HEMOGLOBIN 13.9 gm/dL (12.0-15.0); MCH 31.8 pg (26.0-34.0); MCHC 34.4 g/dL (28.0-37.0); MCV 92.5 fL (80.0-100.0); MONOCYTES 7.4 % (1.0-8.0); PLATELET COUNT 298 thou/uL (150-400); POLYS 70.1 % (36.0-66.0); RBC 4.37 mil/uL (4.20-5.00); WBC 7.8 thou/uL (4.0-11.0)
[2019-09-12 13:17] LABS: URINE BILIRUBIN NEGATIVE (Negative); URINE BLOOD NEGATIVE (Negative); URINE CLARITY CLEAR; URINE COLOR YELLOW; URINE GLUCOSE-RANDOM* NEGATIVE (Negative); URINE KETONES NEGATIVE (Negative); URINE LEUKOCYTES-REFLEX NEGATIVE (Negative); URINE NITRITE-REFLEX NEGATIVE (Negative); URINE PROTEIN (DIPSTICK) TRACE (Negative); URINE SPECIFIC GRAVITY 1.015 (1.005-1.035); URINE UROBILINOGEN 0.2 E.U./dl (0.2-1.0)
[2019-09-12 13:26] LABS: ANION GAP 11 mmol/L (7-16); BUN 5 mg/dL (7-18); CALCIUM 8.2 mg/dL (8.5-10.1); CHLORIDE 97 mmol/L (98-107); CO2 24 mmol/L (21-32); CREATININE 0.7 mg/dL (0.6-1.0); GLUCOSE 98 mg/dL (74-106); POTASSIUM 3.7 mmol/L (3.5-5.1); SODIUM 132 mmol/L (136-145)
[2019-09-12 13:36] LABS: ALBUMIN 3.7 g/dL (3.4-5.0); LIPASE 96 U/L (73-393); SGOT 49 U/L (15-37); SGPT 52 U/L (30-65); TOTAL BILIRUBIN 0.6 mg/dL (0.2-1.0); TOTAL PROTEIN 7.9 g/dL (6.4-8.2); TROPONIN-I <0.06 ng/mL (<0.06)
[2019-09-12] MEDS ORDERED: BENTYL 20 MG TA20 M1 PO (14:41)
[2019-09-12] MEDS ORDERED: ONDANSETRON HCL4 M2 PO (14:41)
[2019-09-12 15:30] VITALS: BP 127/87
--- NOTE | 2019-09-13 07:26 | EKG ---
[facility] [place] [address] ELECTROCARDIOGRAM REPORT Name: CARMELO BROWN Room #: DEP [facility]#: [id number] Admission: 09/12/19 Attend Phys: Discharge: 09/12/19 Date of : 85 Report #: [id number] THIS REPORT FOR: cc: [facility] - Clinic physician unknown [facility] - Clinic physician unknown Sachin Lema MD [facility] THIS REPORT FOR: //name// [facility] ED Test Date: 2019-09-12 Test Time: 12:31:04 Pat Name: CARMELO BROWN Department: Room: Gender: Manager Review: [facility] : 1985 Requested By: Melva Diamond Order Number: [id number] MD: Sachin Lema Measurements Intervals Vance Rate: 106 P: 58 OK: 137 QRS: 50 QRSD: 80 T: 28 QT: 338 QTc: 449 Interpretive Statements Sinus tachycardia Otherwise no significant abnormality Compared to ECG 07/05/2018 04:33:22 No significant changes Electronically Signed On 09-13-2019 7:25:31 CDT by Sachin Lema [email or web address] <ELECTRONICALLY SIGNED> By: Sachin Lema MD, [facility] 09/13/19 0725 1231 1231 Sachin Lema MD, [facility] /EPI
== END 2019-09-12 15:30 | disposition home or self-care (01) ==
LOC: ER 12:23
PROVIDERS: Physician Assistant
DX: G89.29 Other chronic pain (principal); R10.13 Epigastric pain; R07.89 Other chest pain; R11.2 Nausea with vomiting, unspecified; R19.7 Diarrhea, unspecified; Z90.89 Acquired absence of other organs; Z98.890 Other specified postprocedural states; Z90.49 Acquired absence of other specified parts of digestive tract; Z88.6 Allergy status to analgesic agent; Z88.8 Allergy status to other drugs, medicaments and biological substances; Z88.0 Allergy status to penicillin; Z87.891 Personal history of nicotine dependence